=== PATIENT | female | born 1960 | race Caucasian/White ===

== ENCOUNTER → 2016-10-21 | Outpatient (CLI) | payer BC, OTHER ==
--- NOTE | 2016-10-25 11:42 | MM ---
Reason for exam: screening (asymptomatic). Last mammogram was performed 1 year and 2 months ago. History: Patient is postmenopausal and history of other cancer. Family history of breast cancer in maternal aunt at age 40 and breast cancer in maternal aunt at age 50. Physical Findings: A clinical breast exam by your physician is recommended on an annual basis and results should be correlated with mammographic findings. MG 3D Screening Mammo W/Cad Bilateral CC and MLO view(s) were taken. Prior study comparison: August 15, 2015, bilateral MG 3d screening mammo w/cad. January 23, 2014, bilateral MG screening mammo w CAD. There are scattered fibroglandular densities. There is chronic nodularity in the right breast. No significant changes when compared with prior studies. ASSESSMENT: Negative, BI-RAD 1 RECOMMENDATION: Routine screening mammogram of both breasts in 1 year.
== END | disposition home or self-care (01) ==
LOC: RADMAMWWP 13:19
PROVIDERS: ATTEND Family Medicine
DX: Z12.31 Encounter for screening mammogram for malignant neoplasm of breast (principal)
CPT/HCPCS: 77063; G0202

== ENCOUNTER 2016-11-19 13:57 | Emergency (ER) | payer BC, OTHER ==
[2016-11-19 14:52] VITALS: RESP 18
[2016-11-19] MEDS ORDERED: HYDROmorphone 1 MG/ML 1 ML SYRINGE IM STA (15:44)
--- NOTE | 2016-11-19 15:48 | ED ---
Fall HPI - General Chief Complaint: Fall Stated Complaint: Arm/Rib Pain/SOB / fall from standing Time Seen by Provider: 11/19/16 15:25 Source: patient, RN notes reviewed Mode of arrival: ambulatory - History of Present Illness Initial Comments: Patient is a 56-year-old female presents to the emergency room for evaluation of fall injury. Patient states that she tripped over her dog and fell on her right side. Patient states she hit her head. Patient states that she thinks she lost consciousness for a few seconds. Patient states that she is having a headache. Patient denies dizziness or nausea. Patient denies neck pain. Patient states that she does have a bruise on the right side of her right eye. Patient denies changes in vision. Patient states that she is also having right shoulder, upper arm, elbow and wrist pain. Patient states the pain is more severe in her elbow. Patient denies any numbness or tingling in her fingers. Patient also states that she's having right-sided rib pain. Patient states the pain is worse when she takes a deep breath. Patient denies any other injuries during incident. Patient denies taking blood thinners. - Related Data Home Medications Medication Instructions Recorded Confirmed Omeprazole [PriLOSEC] 20 mg PO HS 09/13/14 11/19/16 Verapamil HCl [Verapamil ER] 180 mg PO HS 09/13/14 11/19/16 Milk Thistle 150 mg PO HS 11/19/16 11/19/16 Multivitamins, Thera [Multivitamin 1 tab PO HS 11/19/16 11/19/16 (formulary)] Previous Rx's Medication Instructions Recorded HYDROcodone/APAP 5-325MG [[place]on 1 tab PO Q6HR PRN #12 tab 11/19/16 5-325] Allergies Allergy/AdvReac Type Severity Reaction Status Date / Time aspirin Allergy Anaphylaxis Verified 11/19/16 15:50 prednisone AdvReac Severe Increased Verified 11/19/16 15:50 Blood Pressure ciprofloxacin [From Cipro] AdvReac Tendonitis Verified 11/19/16 15:50 duloxetine HCl AdvReac Hallucinations/Suicidal Verified 11/19/16 15:50 [From Cymbalta] Ideations morphine AdvReac Migraine Verified 11/19/16 15:50 topiramate [From Topamax] AdvReac Hallucinati Verified 11/19/16 15:50 ons Review of Systems ROS Statement: Those systems with pertinent positive or pertinent negative responses have been documented in the HPI. ROS Other: All systems not noted in ROS Statement are negative. Past Medical History Past Medical History: Fibromyalgia, GERD/Reflux, Liver Disease Additional Past Medical History / Comment(s): Fibromyalgia, IBS, Chronic fatigue , elevated liver enzymes unknown etiology, chronic back pain (broken back) History of Any Multi-Drug Resistant Organisms: None Reported Past Surgical History: Cholecystectomy, Hysterectomy, Orthopedic Surgery Additional Past Surgical History / Comment(s): 2004 hysterectomy 2011 exp lap for scar tissue, 1999 right elbow tendon release, 2002 left elbow tendon release , 2011 gallbladder removed, occipital nerve steriod injections., ankle Past Anesthesia/Blood Transfusion Reactions: Postoperative Nausea & Vomiting ( PONV) Past Psychological History: No Psychological Hx Reported Additional Psychological History / Comment(s): Patient had suicide ideation when taking Cymbalta. Smoking Status: Never smoker Past Alcohol Use History: None Reported Past Drug Use History: Marijuana Additional Drug Use History / Comment(s): medical marijuana cards--uses occassionally for pain when needed - Past Family History Mother Family Medical History: No Reported History General Exam - General Exam Comments Initial Comments: Sitting in exam room, no acute. Limitations: no limitations General appearance: alert, in no apparent distress Head exam: Present: normocephalic, normal inspection. Absent: atraumatic (Mild amount of bruising and swelling on the outside of the right eye) Eye exam: Present: normal appearance ENT exam: Present: normal exam Neck exam: Present: normal inspection Respiratory exam: Present: normal lung sounds bilaterally, chest wall tenderness (Tenderness on palpating over anterior lateral right rib area. No ecchymosis or swelling noted.). Absent: respiratory distress Cardiovascular Exam: Present: regular rate, normal rhythm, normal heart sounds Right Shoulder Exam: Present: tenderness. Absent: full ROM Upper Arm exam: Present: tenderness (Palpating over her mid and distal humerus) Elbow exam: Present: tenderness. Absent: full ROM (Patient can only hold elbow 90 position) Forearm Wrist exam: Present: tenderness Hand Wrist exam: Present: tenderness. Absent: full ROM (Patient unable to extend wrist) Neuro motor exam: Absent: wrist extension intact Vascular: Present: normal capillary refill (Capillary refill is 2 seconds), radial pulse (2+), ulnar pulse (2+) Back exam: Present: normal inspection Neurological exam: Present: alert, oriented X3, CN II-XII intact, normal gait Expanded Patient oriented to: Present: person, place, time Speech: Present: fluid speech Cranial nerves: EOM's Intact: Normal, Facial Sensation: Normal Sensory exam: Upper Extremity Light Touch: Normal, Lower Extremity Light Touch: Normal Course Vital Signs 11/19/16 14:49 Temperature 98.3 F Pulse Rate 91 Respiratory 18 Rate Blood Pressure 141/68 O2 Sat by Pulse 99 Oximetry Medical Decision Making - Medical Decision Making Hansa is a 56-year-old female presents to the emergency room for evaluation of fall injury. Patient has multiple complaints. CT of brain and C-spine negative for any acute findings. Facial CT negative for acute findings. Right elbow x-ray significant for a minimally displaced radial head fracture. Positive sail sign. Patient also having issues extending her wrist. Patient most likely has radial nerve palsy from radial head injury. Advised patient to follow-up with head orthopedic team physician on Tuesday. Patient placed in an arm sling. Patient will be sent home with pain medications. Patient states she understands everything that was discussed with her. Return parameters discussed. Case discussed with Dr. Duggan. - Radiology Data Radiology results: report reviewed, image reviewed Disposition Clinical Impression: Fall, Contusion of rib on right side, Head trauma, Facial contusion, Right radial head fracture, Acute radial nerve palsy Disposition: HOME SELF-CARE Condition: Good Instructions: Head Injury (ED), Elbow Fracture in Adults (ED), Rib Contusion ( ED) Additional Instructions: Take pain medications as needed. Ice on and off for 10-15 minutes for the next 24-48 hours. Please follow-up with head orthopedic team physician in 24-48 hours for reevaluation. If new symptoms develop or symptoms worsen, please return to the ER. Prescriptions: HYDROcodone/APAP 5-325MG [Colon 5-325] 1 tab PO Q6HR PRN #12 tab PRN Reason: Pain Referrals: Calvin Felix DO [Primary Care Provider] - 1-2 days Zen Arreguin MD [STAFF PHYSICIAN] - 1-2 days Time of Disposition: 16:59
--- NOTE | 2016-11-19 16:35 | CT ---
EXAMINATION TYPE: CT brain danette wo con DATE OF EXAM: 11/19/2016 4:23 PM COMPARISON: NONE HISTORY: 56-year-old female with fall today and side injury. CT DLP: 2004.6 mGycm Automated exposure control for dose reduction was used. Technique: Examination of the head was done in axial plane without intravenous contrast. Coronal and sagittal reconstructions performed. CT of the cervical spine was obtained in axial plane without intravenous injection of contrast mater ial. Coronal and sagittal reformatted images were obtained from the axial views for evaluation of f ractures, spinal alignment and canal. FINDINGS: Head: There is no evidence of acute intracranial hemorrhage, acute ischemic changes, mass, mass-effect, or extra-axial fluid collection. There is no effacement of cerebral sulci or basal subarachnoid cister ns. There is no hydrocephalus. There is no midline shift. Kaye-white matter distinction is preserv ed. There is focal soft tissue contusion overlying the patient's right temporal. No underlying calvarial or skull base fracture. Mastoid air cells well pneumatized. The visualized face will be reported sepa rately. Cervical spine: No craniocervical junction abnormality, predental space widening, or prevertebral soft tissue swellin g. Moderate disc/endplate degenerative change, greatest at C3-C4 and C5-C6 with disc osteophyte complex. There is multilevel uncovertebral joint and facet degenerative change. Changes result in mild narrowing of the spinal canal at both C3-C4 and C5-C6. There is trace grade 1 retrolisthesis at C3-C4 but otherwise preserved alignment. No acute fracture of the cervical spine. Variable mild neural foraminal narrowing, more moderate on the right at C5-C6. Sagittal and coronal reformatted images confirm above findings. COMBINED IMPRESSION: 1. Soft tissue contusion overlying the right temporal region. No underlying skull fracture or acute i ntracranial abnormality seen. The face will be reported separately. 2. No acute fracture of the cervical spine. Moderate multilevel spondylotic change with degenerative grade 1 retrolisthesis at C3-C4.
--- NOTE | 2016-11-19 16:37 | CT ---
EXAMINATION TYPE: CT facial bones wo con DATE OF EXAM: 11/19/2016 4:24 PM COMPARISON: NONE HISTORY: 56-year-old female with fall today and side injury. TECHNIQUE: Contiguous high-resolution axial scanning of the facial bones without IV contrast. Coronal reconstructions performed. CT DLP: 2004.6 mGycm Automated exposure control for dose reduction was used. FINDINGS: Redemonstrated soft tissue contusion along the lateral right periorbital/temporal region. No underlyi ng orbital, nasal bone, or facial bone fracture. The globes appear intact. Paranasal sinuses well pne umatized. Undulating nasal septum is noted. Mandible is intact. IMPRESSION: SOFT TISSUE CONTUSION IN THE RIGHT LATERAL PERIORBITAL/TEMPORAL REGION WITHOUT UNDERLYING ACUTE FACIA L BONE OR ORBITAL FRACTURE.
--- NOTE | 2016-11-19 16:39 | XR ---
EXAMINATION TYPE: PA view chest and right rib series DATE OF EXAM: 11/19/2016 4:34 PM COMPARISON: 08/25/2011 HISTORY: 56-year-old female with pain after fall last night. FINDINGS: Heart is normal size. Aorta and pulmonary vasculature within normal limits. No consolidation, pneumot horax, or pleural effusion. Similar mild eventration of the right hemidiaphragm. Cholecystectomy clips. No displaced right rib fractures seen. IMPRESSION: No acute cardiopulmonary process. No displaced right rib fractures.
--- NOTE | 2016-11-19 16:42 | XR ---
EXAMINATION TYPE: 2 views right humerus. 2 views right forearm. DATE OF EXAM: 11/19/2016 4:34 PM COMPARISON: NONE HISTORY: 56-year-old female with fall last night and pain. Right elbow swelling. FINDINGS: Humerus: There is mild degenerative change at the AC joint. No acute fracture seen of the humerus. Forearm: There is underlying elbow joint effusion with a minimally displaced, mildly comminuted fracture of th e radial head with intra-articular extension into the radiocapitellar joint. There is very minimal 7 mm of articular surface step-off. The wrist articulation appears grossly intact. IMPRESSION: Humerus and forearm: Post traumatic elbow joint effusion/hemarthrosis with mildly comminuted, minimal ly displaced intra-articular radial head fracture.
[2016-11-19 17:57] VITALS: BP 133/60; PULSE 79; TEMP 98.7
== END 2016-11-19 17:50 | disposition home or self-care (01) ==
LOC: EC 13:57
DX: S52.121A Displaced fracture of head of right radius, initial encounter for closed fracture (principal); S05.8X1A Other injuries of right eye and orbit, initial encounter; S20.211A Contusion of right front wall of thorax, initial encounter; G56.31 Lesion of radial nerve, right upper limb; M25.511 Pain in right shoulder; K21.9 Gastro-esophageal reflux disease without esophagitis; Z79.899 Other long term (current) drug therapy; Z88.1 Allergy status to other antibiotic agents; Z88.5 Allergy status to narcotic agent; Z88.6 Allergy status to analgesic agent; Z88.8 Allergy status to other drugs, medicaments and biological substances; Z87.19 Personal history of other diseases of the digestive system; Z98.890 Other specified postprocedural states; W01.0XXA Fall on same level from slipping, tripping and stumbling without subsequent striking against object, initial encounter
CPT/HCPCS: 99284; 96372; 71101; 73060; 73090; 72125; 70486; 70450; L3650; J1170

== ENCOUNTER → 2017-11-11 | Outpatient (CLI) | payer BC, OTHER ==
--- NOTE | 2017-11-15 11:16 | MM ---
Reason for exam: screening (asymptomatic). Last mammogram was performed 1 year and 1 month ago. History: Patient is postmenopausal and history of other cancer. Family history of breast cancer in maternal aunt at age 40 and breast cancer in maternal aunt at age 50. Physical Findings: A clinical breast exam by your physician is recommended on an annual basis and results should be correlated with mammographic findings. MG 3D Screening Mammo W/Cad Bilateral CC and MLO view(s) were taken. Prior study comparison: October 21, 2016, bilateral MG 3d screening mammo w/cad. August 15, 2015, bilateral MG 3d screening mammo w/cad. There are scattered fibroglandular densities. There is chronic nodularity in the right breast. No significant changes when compared with prior studies. ASSESSMENT: Negative, BI-RAD 1 RECOMMENDATION: Routine screening mammogram of both breasts in 1 year. Manage on a clinical basis with regard to right breast pain and irritation.
== END | disposition home or self-care (01) ==
LOC: RADMAMWWP 11:34
PROVIDERS: ATTEND Family Medicine
DX: Z12.31 Encounter for screening mammogram for malignant neoplasm of breast (principal)
CPT/HCPCS: 77063; 77067

== ENCOUNTER → 2018-09-19 | Outpatient (CLI) | payer BC, OTHER ==
--- NOTE | 2018-09-19 12:26 | EST ---
EXERCISE STRESS AGE: 57 SEX: F HT: 65" WT: 219 PROTOCOL: Aneudy Stress Test STAGE: 2 DURATION OF EXERCISE: 5:00 HEART RATE REST: 88 BLOOD PRESSURE REST: 134/91 MAXIMUM HEART RATE ACHIEVED: 157 MAXIMUM BLOOD PRESSURE: 166/80 85% MPHR: 138 100% MPHR: 162 METS: 7.0 INDICATIONS: Chest pain/palpitations. CLINICAL INFORMATION: STRESS DATA: Pretesting physical examination showed a heart rate of 88, pressure is 134/91 mmHg. Baseline EKG showed sinus mechanism. The patient exercised on the treadmill according to Aneudy protocol for a total of 5 minutes and achieved 7.0 METS. Max heart rate was 157, which is about 97% of maximum predicted heart rate. Maximum blood pressure was 166/80 mmHg. Clinically, the patient did not have any symptoms of chest pain or discomfort but she developed shortness of breath. The EKG did not show any significant ST or T-wave abnormalities concerning for ischemia. CONCLUSION: 1. Average exercise capacity. 2. Normal EKG in response to exercise. MMODL / IJN: [id number] /
== END | disposition home or self-care (01) ==
LOC: RADNMMAIN 08:54
PROVIDERS: ATTEND Family Medicine
DX: I47.1 Supraventricular tachycardia (principal); I49.3 Ventricular premature depolarization
CPT/HCPCS: 93017; 93270; 93271

== ENCOUNTER 2018-10-07 19:39 | Emergency (ER) | payer BC, OTHER ==
[2018-10-07 19:49] VITALS: RESP 20; TEMP 98.5
[2018-10-07] MEDS ORDERED: methylPREDNISolone SOD SUCCI 125 MG/2 ML VIAL IV STA (19:55)
[2018-10-07] MEDS ORDERED: FAMOTIDINE 20 MG/2 ML VIAL IV STA (19:55)
[2018-10-07] MEDS ORDERED: SODIUM CHLORIDE 0.9% 1,000 ML IV ONE (19:55)
[2018-10-07] MEDS ORDERED: diphenhydrAMINE 50 MG/ML 1 ML VIAL IVP STA (19:55)
--- NOTE | 2018-10-07 21:17 | ED ---
Allergic Reaction HPI - General Chief complaint: Allergic Reaction Stated complaint: Allergic reaction Time Seen by Provider: 10/07/18 19:49 Source: patient Mode of arrival: ambulatory Limitations: no limitations - History of Present Illness Initial Comments: 57-year-old female patient presents to the emergency department today for evaluation of ALLERGIC reaction. Patient states about 20-30 minutes ago she developed hives, itching, and tingling to her lips. Patient does admit to eating melon that she has not had before. Patient states she has had ALLERGIC reactions in the past. She states she is having a scratchy throat but denies any throat swelling or tongue swelling. She denies any shortness of breath. Patient states that she does feel anxious. She denies any abdominal pain with this. Patient denies any recent rash, fever, chills, chest pain, abdominal pain, nausea, vomiting, diarrhea, constipation, back pain, numbness, tingling, di zziness, weakness, hematuria, dysuria, urinary urgency, urinary frequency, headache, visual changes, or any other complaints. - Related Data Home Medications Medication Instructions Recorded Confirmed Omeprazole [PriLOSEC] 20 mg PO HS 09/13/14 11/19/16 Verapamil HCl [Verapamil ER] 180 mg PO HS 09/13/14 11/19/16 Milk Thistle 150 mg PO HS 11/19/16 11/19/16 Multivitamins, Thera [Multivitamin 1 tab PO HS 11/19/16 11/19/16 (formulary)] Previous Rx's Medication Instructions Recorded HYDROcodone/APAP 5-325MG [[place] 1 tab PO Q6HR PRN #12 tab 11/19/16 5-325] Dexamethasone [Decadron] 6 mg PO DAILY #2 tablet 10/07/18 Famotidine [Pepcid] 20 mg PO DAILY #3 tablet 10/07/18 Allergies Allergy/AdvReac Type Severity Reaction Status Date / Time aspirin Allergy Anaphylaxis Verified 10/07/18 19:48 prednisone AdvReac Severe Increased Verified 10/07/18 19:48 Blood Pressure ciprofloxacin [From Cipro] AdvReac Tendonitis Verified 10/07/18 19:48 duloxetine HCl AdvReac Hallucinations/Suicidal Verified 10/07/18 19:48 [From Cymbalta] Ideations morphine AdvReac Migraine Verified 10/07/18 19:48 topiramate [From Topamax] AdvReac Hallucinati Verified 10/07/18 19:48 ons Review of Systems ROS Statement: Those systems with pertinent positive or pertinent negative responses have been documented in the HPI. ROS Other: All systems not noted in ROS Statement are negative. Past Medical History Past Medical History: Fibromyalgia, GERD/Reflux, Liver Disease Additional Past Medical History / Comment(s): Fibromyalgia, IBS, Chronic fatigue, elevated liver enzymes unknown etiology, chronic back pain (broken back) History of Any Multi-Drug Resistant Organisms: None Reported Past Surgical History: Cholecystectomy, Hysterectomy, Orthopedic Surgery Additional Past Surgical History / Comment(s): 2004 hysterectomy 2011 exp lap for scar tissue, 1999 right elbow tendon release, 2002 left elbow tendon release, 2011 gallbladder removed, occipital nerve steriod injections., ankle Past Anesthesia/Blood Transfusion Reactions: Postoperative Nausea & Vomiting (PONV) Past Psychological History: No Psychological Hx Reported Smoking Status: Never smoker Past Alcohol Use History: None Reported Past Drug Use History: Marijuana - Past Family History Mother Family Medical History: No Reported History General Exam Limitations: no limitations General appearance: alert, in no apparent distress, other (Physical well- developed, well-nourished adult female patient in no acute distress. Vital signs upon presentation are temperature 98.5F, pulse 119, respirations 20, blood pressure 164/85, pulse ox 100% on room air.) Eye exam: Present: normal appearance, PERRL, EOMI. Absent: scleral icterus, conjunctival injection, periorbital swelling ENT exam: Present: normal exam, normal oropharynx, mucous membranes moist Respiratory exam: Present: normal lung sounds bilaterally. Absent: respiratory distress, wheezes, rales, rhonchi, stridor Cardiovascular Exam: Present: normal rhythm, tachycardia, normal heart sounds. Absent: systolic murmur, diastolic murmur, rubs, gallop, clicks GI/Abdominal exam: Present: soft, normal bowel sounds. Absent: distended, tenderness, guarding, rebound, rigid Neurological exam: Present: alert, oriented X3, CN II-XII intact Psychiatric exam: Present: normal affect, normal mood Skin exam: Present: warm, dry, intact, normal color, rash (Erythema noted to the chest, scattered urticaria noted over the chest and arms.) Course Vital Signs 10/07/18 10/07/18 10/07/18 19:47 20:48 22:00 Temperature 98.5 F Pulse Rate 119 H 77 100 Respiratory 20 20 20 Rate Blood Pressure 164/85 127/66 137/81 O2 Sat by Pulse 100 99 99 Oximetry Medical Decision Making - Medical Decision Making 57-year-old female patient presents to the emergency department today for evaluation of ALLERGIC reaction. Patient had urticaria and lip tingling. Lungs are clear to auscultation with good air movement. She had no wheezing. Denies any throat swelling or tongue swelling. Patient was given IV Pepcid, site Medrol, and Benadryl. Upon reevaluation patient reports feeling anxious and has been anxious throughout visit. We did administer Ativan. Patient was re- evaluated once again and patient is feeling improved. She will be discharged home at this time with prescriptions for Pepcid and Decadron. She is instructed to complete these medications in full and to take Benadryl every 6 hours as needed. Return parameters were discussed in detail. She verbalizes understanding and agrees this plan. Disposition Clinical Impression: Allergic reaction Disposition: HOME SELF-CARE Condition: Good Instructions (If sedation given, give patient instructions): General Allergic Reaction (ED) Additional Instructions: Continue medications as directed. Take Benadryl 25-50 mg every 6 hours as needed for symptom relief. Follow-up with your primary care physician for recheck in 1-2 days. Return to the emergency department for any new, worsening, or concerning symptoms. Prescriptions: Dexamethasone [Decadron] 6 mg PO DAILY #2 tablet Famotidine [Pepcid] 20 mg PO DAILY #3 tablet Is patient prescribed a controlled substance at d/c from ED?: No Referrals: Neelima Martinez MD [Primary Care Provider] - 1-2 days Time of Disposition: 22:58
[2018-10-07] MEDS ORDERED: LORazepam 2 MG/ML INJ IV STA (21:49)
[2018-10-07 22:01] VITALS: BP 137/81; PULSE 100
== END 2018-10-07 23:12 | disposition home or self-care (01) ==
LOC: EC 19:39
DX: T78.1XXA Other adverse food reactions, not elsewhere classified, initial encounter (principal); R00.0 Tachycardia, unspecified; K21.9 Gastro-esophageal reflux disease without esophagitis; Z88.1 Allergy status to other antibiotic agents; Z88.5 Allergy status to narcotic agent; Z88.6 Allergy status to analgesic agent; Z88.8 Allergy status to other drugs, medicaments and biological substances; Z79.899 Other long term (current) drug therapy
CPT/HCPCS: 99283; 96374; 96375 ×3; 96361; J2060; J1200; J2930

== ENCOUNTER 2018-10-12 10:27 | Emergency (ER) | payer BC, OTHER ==
[2018-10-12 10:37] VITALS: TEMP 98.3
[2018-10-12] MEDS ORDERED: SODIUM CHLORIDE 0.9% 1,000 ML IV STA (10:42)
[2018-10-12] MEDS ORDERED: FAMOTIDINE 20 MG/2 ML VIAL IV STA (10:42)
[2018-10-12] MEDS ORDERED: diphenhydrAMINE 50 MG/ML 1 ML VIAL IVP STA (10:42)
[2018-10-12] MEDS ORDERED: LORazepam 2 MG/ML INJ IV STA (10:42)
[2018-10-12] MEDS ORDERED: methylPREDNISolone SOD SUCCI 125 MG/2 ML VIAL IV STA (10:42)
[2018-10-12] MEDS ORDERED: KETOROLAC 30 MG/ML 1 ML VIAL IVP STA (12:21)
--- NOTE | 2018-10-12 12:39 | ED ---
General Adult HPI - General Chief complaint: Allergic Reaction Stated complaint: Allergic reaction Time Seen by Provider: 10/12/18 10:30 Source: patient, EMS, RN notes reviewed Mode of arrival: EMS Limitations: no limitations - History of Present Illness Initial comments: 57-year-old female presents to the emergency department for a chief complaint of ALLERGIC reaction. Patient states this started about one hour prior to arrival. Patient states her throat is scratchy and she feels very shaky. Patient states she has had similar ALLERGIC reactions multiple times before. She states the last one was Tuesday and she was seen here in the emergency department. Patient states that she has seen 2 different allergists and had multiple rounds of ALLERGY testing. Patient was started on steroids and Benadryl but again developed an ALLERGIC reaction today with a rash on her arms and face. Patient denies any difficulty swallowing or breathing. Patient has no other complaints at this time including shortness of breath, chest pain, abdominal pain, nausea or vomiting, headache, or visual changes. - Related Data Home Medications Medication Instructions Recorded Confirmed Verapamil HCl [Verapamil ER] 180 mg PO HS 09/13/14 10/12/18 Multivitamins, Thera [Multivitamin 1 tab PO HS 11/19/16 10/12/18 (formulary)] Hyoscyamine Sulfate [Levsin-Sl] 0.125 mg SL DAILY PRN 10/12/18 10/12/18 L.acidoph,Paracasei, B.lactis 1 cap PO DAILY 10/12/18 10/12/18 [Probiotic] Ranitidine HCl [Zantac] 150 mg PO BID 10/12/18 10/12/18 diphenhydrAMINE HCL [Children's 25 mg PO Q4H PRN 10/12/18 10/12/18 Benadryl Allergy Chews] Previous Rx's Medication Instructions Recorded Dexamethasone [Decadron] 6 mg PO DAILY #2 tablet 10/07/18 Famotidine [Pepcid] 20 mg PO BID #20 tablet 10/12/18 predniSONE 50 mg PO DAILY #5 tablet 10/12/18 Allergies Allergy/AdvReac Type Severity Reaction Status Date / Time aspirin Allergy Anaphylaxis Verified 10/12/18 11:00 prednisone AdvReac Severe Increased Verified 10/12/18 11:00 Blood Pressure ciprofloxacin [From Cipro] AdvReac Tendonitis Verified 10/12/18 11:00 duloxetine HCl AdvReac Hallucinations/Suicidal Verified 10/12/18 11:00 [From Cymbalta] Ideations morphine AdvReac Migraine Verified 10/12/18 11:00 topiramate [From Topamax] AdvReac Hallucinati Verified 10/12/18 11:00 ons Review of Systems ROS Statement: Those systems with pertinent positive or pertinent negative responses have been documented in the HPI. ROS Other: All systems not noted in ROS Statement are negative. Past Medical History Past Medical History: Fibromyalgia, GERD/Reflux, Liver Disease Additional Past Medical History / Comment(s): Fibromyalgia, IBS, Chronic fatigue, elevated liver enzymes unknown etiology, chronic back pain (broken back) History of Any Multi-Drug Resistant Organisms: None Reported Past Surgical History: Cholecystectomy, Hysterectomy, Orthopedic Surgery Additional Past Surgical History / Comment(s): 2004 hysterectomy 2011 exp lap for scar tissue, 1999 right elbow tendon release, 2002 left elbow tendon release, 2011 gallbladder removed, occipital nerve steriod injections., ankle Past Anesthesia/Blood Transfusion Reactions: Postoperative Nausea & Vomiting (PONV) Past Psychological History: No Psychological Hx Reported Smoking Status: Never smoker Past Alcohol Use History: None Reported Past Drug Use History: Marijuana - Past Family History Mother Family Medical History: No Reported History General Exam Limitations: no limitations General appearance: anxious Head exam: Present: atraumatic, normocephalic, normal inspection Eye exam: Present: normal appearance, PERRL, EOMI. Absent: scleral icterus, conjunctival injection, periorbital swelling ENT exam: Present: normal exam, normal oropharynx (No angioedema noted, no swelling of the lips tongue or throat), mucous membranes moist, TM's normal bilaterally, normal external ear exam Neck exam: Present: normal inspection, full ROM. Absent: tenderness, meningismus, lymphadenopathy Respiratory exam: Present: normal lung sounds bilaterally. Absent: respiratory distress, wheezes, rales, rhonchi, stridor Cardiovascular Exam: Present: regular rate, normal rhythm, normal heart sounds. Absent: systolic murmur, diastolic murmur, rubs, gallop, clicks GI/Abdominal exam: Present: soft, normal bowel sounds. Absent: distended, tenderness, guarding, rebound, rigid Neurological exam: Present: alert, oriented X3, CN II-XII intact Skin exam: Present: rash (Mild erythema, consistent with hives noted to the neck or face) Course Vital Signs 10/12/18 10/12/18 10/12/18 10:31 11:08 12:20 Temperature 98.3 F Pulse Rate 116 H 120 H 86 Respiratory 20 20 16 Rate Blood Pressure 179/92 160/89 127/79 O2 Sat by Pulse 98 99 99 Oximetry Medical Decision Making - Medical Decision Making 49-year-old female presents for ALLERGIC reaction. Patient has experience the similar symptoms in the past. Patient was last seen here Tuesday and treated. She was given medications here in the emergency department and her symptoms improved significantly. Vitals are stable. No difficulty breathing or swallowing. Patient is much improved at this time. She did develop a headache and was given Toradol. At this time it is felt patient can follow up outpatient. Patient is comfortable and in agreement with this. Did discuss returning if the symptoms occur. I did add Pepcid to the Benadryl and steroid she is taking. She will follow up with an park guard. She'll return here if she has any worsening symptoms. Patient is already looking up phone numbers for an park guard and has been picked out that she would like to see. Disposition Clinical Impression: Allergic reaction Disposition: HOME SELF-CARE Condition: Good Instructions (If sedation given, give patient instructions): General Allergic Reaction (ED) Additional Instructions: Please continue to take steroid and Benadryl. Take Pepcid as well. Follow up with primary care and park guard in 1-2 days. Please return here to the emergency department if you have any worsening symptoms. Prescriptions: Famotidine [Pepcid] 20 mg PO BID #20 tablet predniSONE 50 mg PO DAILY #5 tablet Is patient prescribed a controlled substance at d/c from ED?: No Referrals: Neelima Martinez MD [Primary Care Provider] - 1-2 days Time of Disposition: 12:37
[2018-10-12 12:54] VITALS: BP 126/66; PULSE 77; RESP 16
== END 2018-10-12 13:00 | disposition home or self-care (01) ==
LOC: EC 10:27
DX: T78.40XA Allergy, unspecified, initial encounter (principal); R51 Headache; K21.9 Gastro-esophageal reflux disease without esophagitis; Z88.1 Allergy status to other antibiotic agents; Z88.5 Allergy status to narcotic agent; Z88.6 Allergy status to analgesic agent; Z88.8 Allergy status to other drugs, medicaments and biological substances; Z79.899 Other long term (current) drug therapy
CPT/HCPCS: 99284; 96374; 96375 ×4; J2060; J1200; J2930; J1885

== ENCOUNTER 2018-10-13 15:25 | Observation (INO) | payer BC, OTHER ==
[2018-10-13] MEDS ORDERED: EPINEPHrine 1 MG/ML 1 ML AMP IM STA (15:49)
[2018-10-13] MEDS ORDERED: SODIUM CHLORIDE 0.9% 500 ML 500 ML IV STA (15:49)
[2018-10-13] MEDS ORDERED: LORazepam 2 MG/ML INJ IV STA (15:49)
[2018-10-13] MEDS ORDERED: FAMOTIDINE 20 MG/2 ML VIAL IV STA (15:50)
--- NOTE | 2018-10-13 16:00 | ED ---
General Adult HPI - General Chief complaint: Allergic Reaction Stated complaint: allergic reaction-revisit Time Seen by Provider: 10/13/18 15:42 Source: patient Mode of arrival: wheelchair Limitations: no limitations - History of Present Illness Initial comments: Dictation was produced using [employer] dictation software. please excuse any grammatical, word or spelling errors. Chief Complaint: 57-year-old female presents with concerns of anaphylaxis. History of Present Illness: 49-year-old female with history of multiple A LLERGIES, fibromyalgia, liver disease, GERD presents with concerns of ALLERGIC reaction. Patient states that she began feeling the tingling, throat closure and abdominal pain. Patient was here in the emergency department yesterday and seen for the same thing. Patient has history of multiple ALLERGIES. Patient was given steroids and antihistamines yesterday and was discharge home with plans to follow up with medical care administrator. She is here today because she had a repeat event she was concerned she was having a severe ALLERGIC reaction. Patient denies any nausea vomiting. Patient reports that she is ALLERGIC to several things. She is not sure what is the allergen this time around. reports that she appears flushed. The ROS documented in this emergency department record has been reviewed and confirmed by me. Those systems with pertinent positive or negative responses have been documented in the HPI. All other systems are other negative and/or noncontributory. PHYSICAL EXAM: General Impression: Alert and oriented x3, anxious, no drooling, tachypnea, flushed skin HEENT: Normocephalic atraumatic, extra-ocular movements intact, pupils equal and reactive to light bilaterally, mucous membranes moist. Cardiovascular: Heart regular rate and rhythm, S1&S2 audible, no murmurs, rubs or gallops Chest: Lungs clear to auscultation bilaterally, no rhonchi, no wheeze, no rales Abdomen: Bowel sounds present, abdomen soft, diffuse abdominal tenderness, non- distended, no organomegaly Musculoskeletal: Pulses present and equal in all extremities, no peripheral edema Motor: no focal deficits noted Neurological: CN II-XII grossly intact, no focal motor or sensory deficits noted Skin: Diffuse flushing Psych: Normal affect and mood ED course: 57-year-old female multiple ALLERGIES presents with clinical presentation concerning for anaphylaxis given respiratory symptoms, abdominal s ymptoms and impending airway symptoms. As upon arrival shows heart rate of 133, worse vital signs within acceptable limits. Patient was seen yesterday for the same complaint. She does seem slightly anxious and given some Ativan.Given that this is patient's third visit in the last week labs were obtained. Patient is leukocytosis of 20.5 likely secondary to stress compounded with steroid adminis tration. Rest of CBC is unremarkable. Patient does have a monocytosis and neutrophilia. She panel was obtained showing no acute processes. No localizing symptoms for indication of imaging studies at this time. More history was obtained from patient. She is reports that she has several ALLERGIES. This point is not clear what is causing patient's symptoms. She stated his be tachycardic. Discussed patient case with son physician group. They agreed to have patient admitted for medical monitoring. At this point it is unclear what is causing patient's symptoms. She did report some improvement after allergen cocktail. - Related Data Home Medications Medication Instructions Recorded Confirmed Verapamil HCl [Verapamil ER] 180 mg PO HS 09/13/14 10/13/18 Hyoscyamine Sulfate [Levsin-Sl] 0.125 mg SL DAILY PRN 10/12/18 10/13/18 Ranitidine HCl [Zantac] 150 mg PO BID 10/12/18 10/13/18 diphenhydrAMINE HCL [Children's 25 mg PO Q4H PRN 10/12/18 10/13/18 Benadryl Allergy Chews] Previous Rx's Medication Instructions Recorded Famotidine [Pepcid] 20 mg PO BID #20 tablet 10/12/18 predniSONE 50 mg PO DAILY #5 tablet 10/12/18 Allergies Allergy/AdvReac Type Severity Reaction Status Date / Time aspirin Allergy Anaphylaxis Verified 10/13/18 16:19 prednisone AdvReac Severe Increased Verified 10/13/18 16:19 Blood Pressure adhesive tape AdvReac Unknown Verified 10/13/18 16:19 ciprofloxacin [From Cipro] AdvReac Tendonitis Verified 10/13/18 16:19 duloxetine HCl AdvReac Hallucinations/Suicidal Verified 10/13/18 16:19 [From Cymbalta] Ideations latex AdvReac Unknown Verified 10/13/18 16:19 morphine AdvReac Migraine Verified 10/13/18 16:19 topiramate [From Topamax] AdvReac Hallucinati Verified 10/13/18 16:19 ons Review of Systems ROS Statement: Those systems with pertinent positive or pertinent negative responses have been documented in the HPI. ROS Other: All systems not noted in ROS Statement are negative. Past Medical History Past Medical History: Fibromyalgia, GERD/Reflux, Liver Disease Additional Past Medical History / Comment(s): Fibromyalgia, IBS, Chronic fatigue, elevated liver enzymes unknown etiology, chronic back pain (broken back) History of Any Multi-Drug Resistant Organisms: None Reported Past Surgical History: Cholecystectomy, Hysterectomy, Orthopedic Surgery Additional Past Surgical History / Comment(s): 2004 hysterectomy 2011 exp lap for scar tissue, 1999 right elbow tendon release, 2002 left elbow tendon release, 2011 gallbladder removed, occipital nerve steriod injections., ankle Past Anesthesia/Blood Transfusion Reactions: Postoperative Nausea & Vomiting (PONV) Past Psychological History: No Psychological Hx Reported Smoking Status: Never smoker Past Alcohol Use History: None Reported Past Drug Use History: Marijuana - Past Family History Mother Family Medical History: No Reported History General Exam Limitations: no limitations Course Vital Signs 10/13/18 10/13/18 10/13/18 15:32 16:11 16:30 Temperature 98.7 F Pulse Rate 133 H 111 H 110 H Respiratory 20 22 20 Rate Blood Pressure 158/116 187/105 144/88 O2 Sat by Pulse 99 97 98 Oximetry Medical Decision Making - Lab Data Result diagrams: 10/13/18 16:00 10/13/18 16:00 Lab Results 10/13/18 10/13/18 Range/Units 16:00 16:00 WBC 21.5 H (3.8-10.6) k/uL RBC 5.07 (3.80-5.40) m/uL Hgb 15.6 (11.4-16.0) gm/dL Hct 47.4 H (34.0-46.0) % MCV 93.4 (80.0-100.0) fL MCH 30.7 (25.0-35.0) pg MCHC 32.9 (31.0-37.0) g/dL RDW 13.0 (11.5-15.5) % Plt Count 398 (150-450) k/uL Neutrophils % 82 % Lymphocytes % 11 % Monocytes % 5 % Eosinophils % 1 % Basophils % 0 % Neutrophils # 17.6 H (1.3-7.7) k/uL Lymphocytes # 2.3 (1.0-4.8) k/uL Monocytes # 1.1 H (0-1.0) k/uL Eosinophils # 0.2 (0-0.7) k/uL Basophils # 0.1 (0-0.2) k/uL Sodium 138 (137-145) mmol/L Potassium 4.4 (3.5-5.1) mmol/L Chloride 105 (98-107) mmol/L Carbon Dioxide 22 (22-30) mmol/L Anion Gap 11 mmol/L BUN 17 (7-17) mg/dL Creatinine 0.62 (0.52-1.04) mg/dL Est GFR (CKD-EPI)AfAm >90 (>60 ml/min/1.73 sqM) Est GFR (CKD-EPI)NonAf >90 (>60 ml/min/1.73 sqM) Glucose 112 H (74-99) mg/dL Uric Acid 3.9 (3.7-7.4) mg/dL Calcium 10.2 (8.4-10.2) mg/dL Total Bilirubin 0.7 (0.2-1.3) mg/dL AST 21 (14-36) U/L ALT 38 (9-52) U/L Alkaline Phosphatase 83 (38-126) U/L Total Protein 7.4 (6.3-8.2) g/dL Albumin 4.4 (3.5-5.0) g/dL Disposition Clinical Impression: Tachycardia Disposition: ADMITTED IP TO THIS [facility] Condition: Fair Referrals: Neelima Martinez MD [Primary Care Provider] - 1-2 days Decision Time: 17:15
[2018-10-13 16:21] LABS: Basophils # (A) 0.1 k/uL (0-0.2); Basophils % (A) 0 %; Eosinophils # (A) 0.2 k/uL (0-0.7); Eosinophils % (A) 1 %; HCT 47.4 % (34.0-46.0); HGB 15.6 gm/dL (11.4-16.0); Lymphocytes # (A) 2.3 k/uL (1.0-4.8); Lymphocytes % (A) 11 %; MCH 30.7 pg (25.0-35.0); MCHC 32.9 g/dL (31.0-37.0); MCV 93.4 fL (80.0-100.0); Mean Platelet Volume 7.2; Monocytes # (A) 1.1 k/uL (0-1.0); Monocytes % (A) 5 %; Neutrophils # (A) 17.6 k/uL (1.3-7.7); Neutrophils % (A) 82 %; Platelet Count 398 k/uL (150-450); RBC 5.07 m/uL (3.80-5.40); WBC 21.5 k/uL (3.8-10.6)
[2018-10-13 16:35] LABS: ALT 38 U/L (9-52); AST 21 U/L (14-36); Albumin 4.4 g/dL (3.5-5.0); Alkaline Phosphatase 83 U/L (38-126); Anion Gap 11 mmol/L; Blood Urea Nitrogen 17 mg/dL (7-17); Calcium 10.2 mg/dL (8.4-10.2); Carbon Dioxide 22 mmol/L (22-30); Chloride 105 mmol/L (98-107); Glucose 112 mg/dL (74-99); Potassium 4.4 mmol/L (3.5-5.1); Sodium 138 mmol/L (137-145); Total Bilirubin 0.7 mg/dL (0.2-1.3); Total Protein 7.4 g/dL (6.3-8.2); Uric Acid 3.9 mg/dL (3.7-7.4)
[2018-10-13] MEDS ORDERED: NALOXONE 0.4 MG/ML 1 ML VIAL IV PRN (17:12)
[2018-10-13] MEDS: SODIUM CHLORIDE 0.9% 1,000 ML IV SCH (18:58)
--- NOTE | 2018-10-13 19:13 | P.HPIM ---
History of Present Illness H&P Date: 10/13/18 Chief Complaint: ALLERGIC reaction 49-year-old female with past medical history of GERD and fibromyalgia, migraines presents the ED for possible ALLERGIC reaction. Patient reports her symptoms started on Tuesday night. Patient had previously been wearing a Holter monitor for the past 19 days for an abnormal EKG that was prescribed to her by her family doctor. She started noticing a rash around the leads that were attached to her chest. She also felt her lips swelling along with tongue swelling. Patient was also noted to have a high pulse and elevated BP. Patient states that she measured her blood pressure, 197/134 with a pulse greater than 100. This prompted her to come to the ED where she was started discharged on prednisone and Benadryl. Patient reports coming to the ED yesterday with similar symptoms of facial flushing, numbness of the lips and nose along with feelings of swelling. Her pulse and blood pressure was elevated at that time as well. She was sent home from the ED. Patient returned again today for similar symptoms. Patient reports severe ALLERGIES to beef, dairy, corn, wheat, chemical and environmental sensitivities. Patient reports a previous history of anaphylaxis. She denies any smoking or alcohol use. Patient reports having a headache since Tuesday, states that she has a history of complex migraines. She denies any lower extremity edema or vomiting but does endorse nausea. Patient states that she feels intermittently, hot and cold. She denies any chest pain, changes in urination or bowel habits. No changes in appetite or weight. Patient reports a previous incident of similar symptoms a few years ago, it was attributed to ALLERGIC reaction. In the ED, patient was noted to have a blood pressure as high as 187/105. Her pulse was as high as 133, which improved slightly with Ativan. CBC showed a leukocytosis of 21.5. CMP was unremarkable. TSH was within normal limits. [facility] possible [facility]GIC reaction, concerns for anaphylaxis. Review of Systems All systems: negative Past Medical History Past Medical History: Fibromyalgia, GERD/Reflux, Liver Disease Additional Past Medical History / Comment(s): Fibromyalgia, IBS, Chronic fatigue, elevated liver enzymes unknown etiology, chronic back pain (broken back) History of Any Multi-Drug Resistant Organisms: None Reported Past Surgical History: Cholecystectomy, Hysterectomy, Orthopedic Surgery Additional Past Surgical History / Comment(s): 2004 hysterectomy 2011 exp lap for scar tissue, 1999 right elbow tendon release, 2002 left elbow tendon release, 2011 gallbladder removed, occipital nerve steriod injections., ankle Past Anesthesia/Blood Transfusion Reactions: Postoperative Nausea & Vomiting (PONV) Past Psychological History: No Psychological Hx Reported Smoking Status: Never smoker Past Alcohol Use History: None Reported Past Drug Use History: Marijuana - Past Family History Mother Family Medical History: No Reported History Medications and Allergies Home Medications Medication Instructions Recorded Confirmed Type Verapamil HCl [Verapamil ER] 180 mg PO HS 09/13/14 10/13/18 History Famotidine [Pepcid] 20 mg PO BID #20 tablet 10/12/18 10/13/18 Rx Hyoscyamine Sulfate [Levsin-Sl] 0.125 mg SL DAILY PRN 10/12/18 10/13/18 History Ranitidine HCl [Zantac] 150 mg PO BID 10/12/18 10/13/18 History diphenhydrAMINE HCL [Children's 25 mg PO Q4H PRN 10/12/18 10/13/18 History Benadryl Allergy Chews] predniSONE 50 mg PO DAILY #5 tablet 10/12/18 10/13/18 Rx Allergies Allergy/AdvReac Type Severity Reaction Status Date / Time aspirin Allergy Anaphylaxis Verified 10/13/18 16:19 prednisone AdvReac Severe Increased Verified 10/13/18 16:19 Blood Pressure adhesive tape AdvReac Unknown Verified 10/13/18 16:19 ciprofloxacin [From Cipro] AdvReac Tendonitis Verified 10/13/18 16:19 duloxetine HCl AdvReac Hallucinations/Suicidal Verified 10/13/18 16:19 [From Cymbalta] Ideations latex AdvReac Unknown Verified 10/13/18 16:19 morphine AdvReac Migraine Verified 10/13/18 16:19 topiramate [From Topamax] AdvReac Hallucinati Verified 10/13/18 16:19 ons Physical Exam Vitals: Vital Signs Temp Pulse Resp BP Pulse Ox 10/13/18 18:00 97 18 139/77 96 10/13/18 16:30 110 H 20 144/88 98 10/13/18 16:11 111 H 22 187/105 97 10/13/18 15:32 98.7 F 133 H 20 158/116 99 Intake and Output 10/13/18 10/13/18 10/13/18 06:59 14:59 22:59 Other: Weight 97.069 kg General: [non toxic], [no distress], [appears at stated age] Derm: [warm], [facial flushing] Head: [atraumatic], [normocephalic], [symmetric] Eyes: [EOMI], [no lid lag], [anicteric sclera] Mouth: [no lip lesion], [mucus membranes moist] Cardiovascular: [S1S2 reg], [tachycardia], [positive DP pulse bilateral] Lungs: [CTA bilateral], [no rhonchi, no rales] , [no accessory muscle use] Abdominal: [soft], [ nontender to palpation], [no guarding], [no appreciable organomegaly] Ext: [no gross muscle atrophy], [no edema], [no contractures] Neuro: [ CN II-XI grossly intact], [no focal neuro deficits] Psych: [Alert], [oriented], [appropriate affect] Results CBC & Chem 7: 10/13/18 16:00 10/13/18 16:00 Labs: Abnormal Lab Results - Last 24 Hours (Table) 10/13/18 10/13/18 Range/Units 16:00 16:00 WBC 21.5 H (3.8-10.6) k/uL Hct 47.4 H (34.0-46.0) % Neutrophils # 17.6 H (1.3-7.7) k/uL Monocytes # 1.1 H (0-1.0) k/uL Glucose 112 H (74-99) mg/dL Thrombosis Risk Factor Assmnt - Choose All That Apply Any of the Below Risk Factors Present?: Yes Each Factor Represents 1 point: Age 41-60 years, Obesity (BMI >25) Other Risk Factors: No Thrombosis Risk Factor Assessment Total Risk Factor Score: 2 Thrombosis Risk Factor Assessment Level: Low Risk Assessment and Plan Assessment: Assessment and Plan 1. Allergic reaction 2. Leukocytosis 3. Migraines 1. Patient reports history of severe ALLERGIES. Constellation of symptoms pointing towards possible anaphylaxis. Given EpiPen in the ED. Continue Solu- Medrol 60 mg IV 3 times a day. Concerns for pheochromocytoma or Mast cell activation syndrome? Telemetry monitoring. 2. WBC count 21.5 with neutrophils. Likely secondary to prednisone use. Daily CBC. 3. Continue verapamil for prophylaxis of migraines. Reports that Dilaudid has worked in the past to control migraines, will continue. Patient admitted for observation for possible ALLERGIC reaction, concerns for anaphylaxis. Patient names her Keshav decision maker indicates that she can't make decisions for herself. Patient will like to remain full code.
[2018-10-13] MEDS: HYDROmorphone 0.5 MG/0.5 ML SYRINGE IVP PRN ×2 (19:27→22:35)
[2018-10-13] MEDS: FAMOTIDINE 20 MG TAB PO SCH (21:42)
[2018-10-13] MEDS: VERAPAMIL SR 180 MG TABLET.ER PO SCH (21:42)
[2018-10-13] MEDS: methylPREDNISolone SOD SUCCI 125 MG/2 ML VIAL IV SCH (22:56)
[2018-10-14 06:57] LABS: HCT 41.1 % (34.0-46.0); HGB 13.4 gm/dL (11.4-16.0); MCH 31.2 pg (25.0-35.0); MCHC 32.6 g/dL (31.0-37.0); MCV 95.6 fL (80.0-100.0); Mean Platelet Volume 6.6; Platelet Count 306 k/uL (150-450); WBC 11.4 k/uL (3.8-10.6)
[2018-10-14] MEDS: methylPREDNISolone SOD SUCCI 125 MG/2 ML VIAL IV SCH ×3 (06:58→23:26)
[2018-10-14] MEDS: HYDROmorphone 0.5 MG/0.5 ML SYRINGE IVP PRN ×2 (06:58→20:27)
[2018-10-14] MEDS: SODIUM CHLORIDE 0.9% 1,000 ML IV SCH ×3 (07:09→23:26)
[2018-10-14 07:13] LABS: Glucose,Whole Blood 142 mg/dL (75-99)
[2018-10-14] MEDS ORDERED: LORazepam 2 MG/ML INJ IV STA (07:39)
[2018-10-14] MEDS: INSULIN ASPART (NovoLOG) 100 UNIT/ML VIAL SQ SCH ×4 (08:00→21:34)
[2018-10-14] MEDS: FAMOTIDINE 20 MG TAB PO SCH ×2 (08:03→20:23)
--- NOTE | 2018-10-14 10:17 | P.PN ---
Subjective Progress Note Date: 10/14/18 Principal diagnosis: tachycardia, hypotension 57-year-old female with PMH of fibromyalgia, IBS, chronic fatigue syndrome, frequent migraines presents to the ED for what appears to be an ALLERGIC reaction. Reported symptoms include facial flushing, tingling of the lips and tongue along with swelling (which has been nonobserved while here), and palpitations. Patient reports severe ALLERGIES to beef, dairy, corn, wheat, chemical environmental sensitivities with previous history of anaphylaxis. Overnight, patient has had blood pressure fluctuations with a SBP from 70s to 15 0s. Patient seen and examined. No acute events overnight. Patient reports an episode this morning. States that she was standing up to be weighed by the nurse, she sat down she experienced a sudden onset of facial flushing and burning. This was followed by palpitations and feelings of anxiousness. Document of pulse rate in the 130s, BP 71/51. She was given Ativan which improved her pulse to 98 and BP of 153/78. Objective - Vital Signs Vital signs: Vital Signs Temp 97.7 F 10/14/18 03:39 Pulse 98 10/14/18 08:00 Resp 22 10/14/18 08:00 BP 153/78 10/14/18 08:00 Pulse Ox 97 10/14/18 08:00 Intake & Output 10/13/18 10/14/18 10/14/18 18:59 06:59 18:59 Intake Total 790 0 Balance 790 0 Weight 97.069 kg 99.5 kg Intake: Intake, IV Titration 550 Amount Sodium Chloride 0.9% 1, 550 000 ml @ 100 mls/hr IV . Q10H [facility] Rx#:[id number] Oral 240 0 Other: Voiding Method Toilet # Voids 2 1 - Exam General: [non toxic], [no distress], [appears at stated age] Derm: [warm], [facial flushing] Head: [atraumatic], [normocephalic], [symmetric] Eyes: [EOMI], [no lid lag], [anicteric sclera] Mouth: [no lip lesion], [mucus membranes moist] Cardiovascular: [S1S2 reg], [no murmur], [positive DP pulse bilateral] Lungs: [CTA bilateral], [no rhonchi, no rales] , [no accessory muscle use] Abdominal: [soft], [ nontender to palpation], [no guarding], [no appreciable organomegaly] Ext: [no gross muscle atrophy], [no edema], [no contractures] Neuro: [ CN II-XI grossly intact], [no focal neuro deficits] Psych: [Alert], [oriented], [appropriate affect] - Labs CBC & Chem 7: 10/14/18 06:00 10/13/18 16:00 Labs: Abnormal Lab Results - Last 24 Hours (Table) 10/13/18 10/13/18 10/14/18 Range/Units 16:00 16:00 06:00 WBC 21.5 H 11.4 H (3.8-10.6) k/uL Hct 47.4 H (34.0-46.0) % Neutrophils # 17.6 H (1.3-7.7) k/uL Monocytes # 1.1 H (0-1.0) k/uL Glucose 112 H (74-99) mg/dL POC Glucose (mg/dL) (75-99) mg/dL 10/14/18 Range/Units 07:11 WBC (3.8-10.6) k/uL Hct (34.0-46.0) % Neutrophils # (1.3-7.7) k/uL Monocytes # (0-1.0) k/uL Glucose (74-99) mg/dL POC Glucose (mg/dL) 142 H (75-99) mg/dL Assessment and Plan Assessment: Assessment and Plan 1. Allergic reaction 2. Hypotension and tachycardia 3. Leukocytosis 4. Migraines 1. Patient reports history of severe ALLERGIES. Constellation of symptoms pointing towards possible anaphylaxis. Given epinephrine in the ED. Continue Solu-Medrol 60 mg IV 3 times a day. Follow hematology consultation for concerns for mast cell activation syndrome. Ativan 1 mg by mouth three times a day as needed for anxiety. 2. Unknown etiology, orthostatic versus vasovagal. Documented hypotension with tachycardia this morning, symptomatic. Follow troponin/EKG to rule out ACS. Follow-up echocardiogram to evaluate for valvular lesions. Obtain orthostats. Cardiology consulted for tachycardia, possible tilt table testing. 3. WBC count 21.5-11.4 with neutrophils. Likely secondary to prednisone use. Daily CBC. 4. Continue verapamil for prophylaxis of migraines. Reports that Dilaudid has worked in the past to control migraines, will continue. Patient admitted for observation for possible ALLERGIC reaction, concerns for anaphylaxis. Found to be hypotensive and tachycardic this morning, pending workup. Cardiology consulted. Possible DC in 1-2 days. Patient names her Keshav decision maker indicates that she can't make decisions for herself. Patient will like to remain full code.
[2018-10-14 10:19] LABS: Creatine Kinase 21 U/L (30-135)
[2018-10-14 10:29] LABS: Creatine Kinase MB 0.4 ng/mL (0.0-2.4)
[2018-10-14 10:55] LABS: Glucose,Whole Blood 138 mg/dL (75-99)
--- NOTE | 2018-10-14 11:29 | P.CRDCN ---
History of Present Illness History of present illness: This is a pleasant 57-year-old female past medical history significant for fibromyalgia, gastroesophageal reflux disease, chronic tachycardia, depression and chronic back pain. She denies history of hypertension, dyslipidemia, ABDs melitis for coronary artery disease. She is currently prescribed verapamil by her primary care physician and states that this was prescribed secondary to chronic migraine headaches as well as palpitations. We have asked to see her in consultation secondary to tachycardia. This all began approximately one month ago when the patient saw her primary care physician with complaints of palpitations. At that time she ordered a stress test as well as a 30 day event monitor. While undergoing event monitoring the patient states she was starting to have an ALLERGIC reaction to adhesive from the EKG electrodes. She was having significant rash, blistering, itching and pain at the sites of the electrodes. She was only able to complete 19 days of the monitoring due to the ALLERGIC reaction. Since that time she has had frequent episodes of what she describes as an anxiety reaction. For no specific reason at all she will start to feel her heart racing very fast with a tight sensation in the midsternal region with radiation up into the neck and face as well as a rash develops. She states she becomes extremely flushed in the face. She describes associated shortness of breath, nausea and dizziness as well. She then starts shaking and becomes very jittery. She had an episode similar to this this morning around 7:00 with no specific precipitating factors. At that time her blood pressure was noted to be low 71/51 telemetry tracings revealed sinus tachycardia heart rate of 129. She was given Ativan and her symptoms resolved. She has had multiple episodes like this over the previous couple of weeks. She has presented to the emergency department on multiple occasions has been diagnosed with an ALLERGIC reaction and given Benadryl and steroids. She is seen and examined sitting up in bed with her at the bedside. She is in no acute distress. Heart rate is regular and approximately 70 bpm. She currently denies symptoms of chest pain, shortness of breath, dizziness, nausea, vomiting, palpitations or diaphoresis. EKG reveals sinus tachycardia heart rate [address]-T wave abnormalities noted. Laboratory data reviewed, WBC 21.5 on admission down to 11.4 this morning, hemoglobin 13.4, platelets 306, sodium 138, potassium 4.4, creatinine 0.62, TSH 0.497. Recent stress test performed 09/19/2018 revealed no EKG evidence of ischemia response to exercise. The patient exercised for 5 minutes according to Ane[employer] protocol and achieved 7 mets. Current cardiac medications include verapamil 180 mg daily. At the time of my exam: CONSTITUTIONAL: Denies fever. Denies chills. EYES: Denies blurred vision. Denies vision changes. Denies eye pain. EARS, NOSE, MOUTH & THROAT: Denies headache. Denies sore throat. Denies ear pain. CARDIOVASCULAR: Denies chest pain. Denies shortness of breath. Denies orthopnea. Denies PND. Denies palpitations. RESPIRATORY: Denies cough. GASTROINTESTINAL: Denies abdominal pain. Denies diarrhea. Denies constipation. Denies nausea. Denies vomiting. MUSCULOSKELETAL: Denies myalgias. INTEGUMENTARY: Denies pruitis. Denies rash. NEUROLOGIC: Denies numbness. Denies tingling. Denies weakness. PSYCHIATRIC: Denies anxiety. Denies depression. ENDOCRINE: Denies fatigue. Denies weight change. Denies polydipsia. Denies polyurina. GENITOURINARY: Denies burning, hematuria or urgency with micturation. HEMATOLOGIC: Denies history of anemia. Denies bleeding. Blood pressure 153/78 heart rate 98 afebrile maintaining oxygen saturation on room air. GENERAL: This is a 57-year-old female in no apparent distress at the time of my examination. HEENT: Head is atraumatic, normocephalic. Pupils are equal, round. Sclerae anicteric. Conjunctivae are clear. Mucous membranes of the mouth are moist. Neck is supple. There is no jugular venous distention. No carotid bruit is heard. LUNGS: Clear to auscultation no wheezes, rales or rhonchi. No chest wall tenderness is noted on palpation or with deep breathing. HEART: Regular rate and rhythm without murmurs, rubs or gallops. S1 and S2 heard. ABDOMEN: Soft, nontender. Bowel sounds are heard. No organomegaly noted. EXTREMITIES: No evidence of peripheral edema and no calf tenderness noted. VASCULAR: Radial and dorsalis pedis pulses palpated, no evidence of clubbing. NEUROLOGIC: Patient is awake, alert and oriented x3. ASSESSMENT Sinus tachycardia with facial flushing, hypotension and chest pain. Assess for Carcinoid syndrome and Pheochromocytoma. Leukocytosis History of migraine headaches PLAN Echocardiogram has been ordered and will be reviewed. Check cardiac enzymes rule out an acute coronary event. Check d-dimer, methanephrines and 24-hr urine catecholemines to assess for possible pheochromocytoma or carcinoid syndrome. Further recommendations to follow. Thank you kindly for this consultation. Nurse Practitioner note has been reviewed, I agree with a documented findings and plan of care. Patient was seen and examined. Past Medical History Past Medical History: Fibromyalgia, GERD/Reflux, Liver Disease Additional Past Medical History / Comment(s): Fibromyalgia, IBS, Chronic fatigue, elevated liver enzymes unknown etiology, chronic back pain (broken back) History of Any Multi-Drug Resistant Organisms: None Reported Past Surgical History: Cholecystectomy, Hysterectomy, Orthopedic Surgery Additional Past Surgical History / Comment(s): 2004 hysterectomy 2011 exp lap for scar tissue, 1999 right elbow tendon release, 2002 left elbow tendon release, 2011 gallbladder removed, occipital nerve steriod injections., ankle Past Anesthesia/Blood Transfusion Reactions: Postoperative Nausea & Vomiting (PONV) Past Psychological History: No Psychological Hx Reported Smoking Status: Never smoker Past Alcohol Use History: None Reported Past Drug Use History: Marijuana - Past Family History Mother Family Medical History: No Reported History Medications and Allergies Home Medications Medication Instructions Recorded Confirmed Type Verapamil HCl [Verapamil ER] 180 mg PO HS 09/13/14 10/13/18 History Famotidine [Pepcid] 20 mg PO BID #20 tablet 10/12/18 10/13/18 Rx Hyoscyamine Sulfate [Levsin-Sl] 0.125 mg SL DAILY PRN 10/12/18 10/13/18 History Ranitidine HCl [Zantac] 150 mg PO BID 10/12/18 10/13/18 History diphenhydrAMINE HCL [Children's 25 mg PO Q4H PRN 10/12/18 10/13/18 History Benadryl Allergy Chews] predniSONE 50 mg PO DAILY #5 tablet 10/12/18 10/13/18 Rx Allergies Allergy/AdvReac Type Severity Reaction Status Date / Time aspirin Allergy Anaphylaxis Verified 10/13/18 16:19 Milk Containing Products Allergy Nausea & Verified 10/14/18 07:13 [Dairy] Vomiting prednisone AdvReac Severe Increased Verified 10/13/18 16:19 Blood Pressure adhesive tape AdvReac Unknown Verified 10/13/18 16:19 ciprofloxacin [From Cipro] AdvReac Tendonitis Verified 10/13/18 16:19 duloxetine HCl AdvReac Hallucinations/Suicidal Verified 10/13/18 16:19 [From Cymbalta] Ideations latex AdvReac Unknown Verified 10/13/18 16:19 morphine AdvReac Migraine Verified 10/13/18 16:19 topiramate [From Topamax] AdvReac Hallucinati Verified 10/13/18 16:19 ons Physical Exam Vitals: Vital Signs Temp Pulse Pulse Resp BP BP Pulse Ox 10/14/18 08:00 98 22 153/78 97 10/14/18 07:09 124 H 21 71/51 99 10/14/18 07:03 130 H 21 10/14/18 03:39 97.7 F 74 18 118/76 96 10/14/18 00:00 98.2 F 74 17 117/72 95 10/13/18 20:15 98.2 F 88 17 114/75 98 10/13/18 20:00 88 18 10/13/18 19:00 97.8 F 99 18 127/81 98 10/13/18 18:00 97 18 139/77 96 10/13/18 17:30 98.2 F 88 18 114/75 98 10/13/18 16:30 110 H 20 144/88 98 10/13/18 16:11 111 H 22 187/105 97 10/13/18 15:32 98.7 F 133 H 20 158/116 99 Intake and Output 10/13/18 10/14/18 10/14/18 22:59 06:59 14:59 Intake Total 790 0 Balance 790 0 Intake: Intake, IV Titration 550 Amount Sodium Chloride 0.9% 1, 550 000 ml @ 100 mls/hr IV . Q10H [facility] Rx#:[id number] Oral 240 0 Other: Voiding Method Toilet Toilet # Voids 2 1 Weight 97.069 kg 99.5 kg Results 10/14/18 06:00 10/13/18 16:00 Cardiac Enzymes 10/13/18 Range/Units 16:00 AST 21 (14-36) U/L CBC 10/13/18 10/14/18 Range/Units 16:00 06:00 WBC 21.5 H 11.4 H (3.8-10.6) k/uL RBC 5.07 4.30 (3.80-5.40) m/uL Hgb 15.6 13.4 (11.4-16.0) gm/dL Hct 47.4 H 41.1 (34.0-46.0) % Plt Count 398 306 (150-450) k/uL Comprehensive Metabolic Panel 10/13/18 Range/Units 16:00 Sodium 138 (137-145) mmol/L Potassium 4.4 (3.5-5.1) mmol/L Chloride 105 (98-107) mmol/L Carbon Dioxide 22 (22-30) mmol/L BUN 17 (7-17) mg/dL Creatinine 0.62 (0.52-1.04) mg/dL Glucose 112 H (74-99) mg/dL Calcium 10.2 (8.4-10.2) mg/dL AST 21 (14-36) U/L ALT 38 (9-52) U/L Alkaline Phosphatase 83 (38-126) U/L Total Protein 7.4 (6.3-8.2) g/dL Albumin 4.4 (3.5-5.0) g/dL Current Medications Generic Name Dose Route Start Last Admin Trade Name Freq PRN Reason Stop Dose Admin Famotidine 20 mg 10/13/18 21:00 10/14/18 08:03 Pepcid PO 20 mg BID TISHA Administration Hydromorphone HCl 0.5 mg 10/13/18 19:07 10/14/18 06:58 Dilaudid IVP 0.5 mg Q3HR PRN Administration Pain Hyoscyamine 0.125 mg 10/13/18 18:57 Levsin PO DAILY PRN ABDOMINAL PAIN Sodium Chloride 1,000 mls @ 100 mls/hr 10/13/18 17:15 10/14/18 07:09 Saline 0.9% IV 100 mls/hr .Q10H TISHA Administration Insulin Aspart 0 unit 10/14/18 07:45 10/14/18 08:00 Novolog SQ Not Given ACHS [facility] Protocol Lorazepam 1 mg 10/14/18 09:16 Ativan PO Q8HR PRN Anxiety Methylprednisolone Sodium Succinate 60 mg 10/14/18 00:00 10/14/18 06:58 Solu-Medrol IV 60 mg Q8HR TISHA Administration Naloxone HCl 0.2 mg 10/13/18 17:12 Narcan IV Q2M PRN Opioid Reversal Verapamil HCl 180 mg 10/13/18 21:00 10/13/18 21:42 Isoptin Sr PO 180 mg HS TISHA Administration Intake and Output 10/13/18 10/14/18 10/14/18 22:59 06:59 14:59 Intake Total 790 0 Balance 790 0 Intake: Intake, IV Titration 550 Amount Sodium Chloride 0.9% 1, 550 000 ml @ 100 mls/hr IV . Q10H [facility] Rx#:[id number] Oral 240 0 Other: Voiding Method Toilet Toilet # Voids 2 1 Weight 97.069 kg 99.5 kg 10/14/18 06:00 10/13/18 16:00
[2018-10-14 12:05] LABS: Troponin I <0.012 ng/mL (0.000-0.034)
--- NOTE | 2018-10-14 13:40 | XR ---
EXAMINATION TYPE: XR chest 2V DATE OF EXAM: 10/14/2018 HISTORY: cp, sob. REFERENCE: Previous study dated 11/19/2016. FINDINGS: The lungs are clear. Pleural spaces are clear. The heart is not enlarged. IMPRESSION: NO ACTIVE INTRATHORACIC DISEASE.
[2018-10-14] MEDS: LORazepam 1 MG TAB PO PRN (13:45)
[2018-10-14] MEDS: HYOSCYAMINE SULFATE 0.125 MG TAB PO PRN (14:19)
[2018-10-14] MEDS: LORazepam 2 MG/ML INJ IV PRN (14:28)
[2018-10-14 16:41] LABS: Glucose,Whole Blood 109 mg/dL (75-99)
--- NOTE | 2018-10-14 18:35 | ECHOF ---
Referral Reason:Tachycardia MEASUREMENTS -------- HEIGHT: 165.1 cm WEIGHT: 99.3 kg BP: 153/78 RVIDd: 3.4 cm (< 3.3) IVSd: 1.2 cm (0.6 - 1.1) LVIDd: 3.7 cm (3.9 - 5.3) LVPWd: 1.1 cm (0.6 - 1.1) IVSs: 1.6 cm LVIDs: 2.4 cm LVPWs: 1.6 cm LAESV Index (A-L): 21.80 ml/m Ao Diam: 2.7 cm (2.0 - 3.7) AV Cusp: 1.9 cm (1.5 - 2.6) LA Diam: 3.3 cm (2.7 - 3.8) EPSS: 0.6 cm MV E Jacinto: 0.78 m/s MV DecT: 262 ms MV A Jacinto: 1.16 m/s MV E/A Ratio: 0.67 RAP: 5.00 mmHg RVSP: 23.52 mmHg MV EF SLOPE: 31.33 mm/s (70 - 150) MV EXCURSION: 1.16 cm (> 18.000) FINDINGS -------- Sinus rhythm. This was a technically adequate study. The left ventricular size is normal. There is mild concentric left ventricular hypertrophy. Overa ll left ventricular systolic function is normal with, an EF between 55 - 60 %. The right ventricle is mildly enlarged. Normal LA size by volume 22+/-6 ml/m2. The right atrium is normal in size. The aortic valve is trileaflet, and appears structurally normal. No aortic stenosis or regurgitation. The mitral valve leaflets are mildly thickened. There is trace to mild mitral regurgitation. Trace tricuspid regurgitation present. Right ventricular systolic pressure is normal at < 35 mmHg. There is no evidence of pulmonary hypertension. Trace/mild (physiologic) pulmonic regurgitation. The aortic root size is normal. Normal inferior vena cava with normal inspiratory collapse consistent with estimated right atrial pre ssure of 5 mmHg. There is no pericardial effusion. CONCLUSIONS -------- 1. Sinus rhythm. 2. This was a technically adequate study. 3. The left ventricular size is normal. 4. There is mild concentric left ventricular hypertrophy. 5. Overall left ventricular systolic function is normal with, an EF between 55 - 60 %. 6. The right ventricle is mildly enlarged. 7. Normal LA size by volume 22+/-6 ml/m2. 8. The aortic valve is trileaflet, and appears structurally normal. No aortic stenosis or regurgitati on. 9. The mitral valve leaflets are mildly thickened. 10. There is trace to mild mitral regurgitation. 11. Trace tricuspid regurgitation present. 12. Right ventricular systolic pressure is normal at < 35 mmHg. 13. There is no evidence of pulmonary hypertension. 14. Trace/mild (physiologic) pulmonic regurgitation. 15. The aortic root size is normal. 16. There is no pericardial effusion. MOLECULAR BIOLOGY DIRECTOR: Irvin Campos RDCS
[2018-10-14] MEDS: VERAPAMIL SR 180 MG TABLET.ER PO SCH (20:23)
[2018-10-14 20:37] LABS: Glucose,Whole Blood 146 mg/dL (75-99)
[2018-10-15 06:10] LABS: Glucose,Whole Blood 119 mg/dL (75-99)
[2018-10-15] MEDS: INSULIN ASPART (NovoLOG) 100 UNIT/ML VIAL SQ SCH ×4 (06:11→20:40)
[2018-10-15] MEDS: FAMOTIDINE 20 MG TAB PO SCH ×2 (08:30→21:18)
[2018-10-15] MEDS: SODIUM CHLORIDE 0.9% 1,000 ML IV SCH ×2 (08:30→21:19)
[2018-10-15] MEDS: methylPREDNISolone SOD SUCCI 125 MG/2 ML VIAL IV SCH ×3 (08:30→22:57)
--- NOTE | 2018-10-15 09:44 | P.PN ---
Subjective This is a pleasant 57-year-old female past medical history significant for fibromyalgia, gastroesophageal reflux disease, chronic tachycardia, depression and chronic back pain. She denies history of hypertension, dyslipidemia, ABDs melitis for coronary artery disease. Echocardiogram obtained reveals preserved left ventricular systolic function with ejection fraction 55- 60%. D-dimer is unremarkable and cardiac enzymes negative. Blood pressure 139/91 heart rate 88 afebrile maintaining oxygen saturation on room air. She is seen and examined resting comfortably lying flat in bed in no acute distress HEENT no to complain of frequent episodes of flushing and states she is having reactions everything including oatmeal she ate for breakfast this morning. She denies any symptoms of chest discomfort. However when she has she is calling ALLERGIC reaction she becomes short of breath and tachycardic. Telemetry tracings have been unremarkable. GENERAL: This is a 57-year-old female in no apparent distress at the time of my examination. HEENT: Head is atraumatic, normocephalic. Pupils are equal, round. Sclerae anicteric. Conjunctivae are clear. Mucous membranes of the mouth are moist. Neck is supple. There is no jugular venous distention. No carotid bruit is heard. LUNGS: Clear to auscultation no wheezes, rales or rhonchi. No chest wall tenderness is noted on palpation or with deep breathing. HEART: Regular rate and rhythm without murmurs, rubs or gallops. S1 and S2 heard. EXTREMITIES: No evidence of peripheral edema and no calf tenderness noted. ASSESSMENT Sinus tachycardia with facial flushing, hypotension and chest pain. Assess for Carcinoid syndrome and Pheochromocytoma. Leukocytosis History of migraine headaches PLAN Overall stable from a cardiac perspective. Follow up with Dr. Martinez for results of pending laboratory values that are send out tests. We will continue to follow as needed. Nurse Practitioner note has been reviewed, I agree with a documented findings and plan of care. Patient was seen and examined. Objective - Vital Signs Vital signs: Vital Signs Temp 97.6 F 10/15/18 08:00 Pulse 88 10/15/18 08:00 Resp 18 10/15/18 08:00 BP 139/91 10/15/18 08:00 Pulse Ox 99 10/15/18 08:00 Intake & Output 10/14/18 10/15/18 10/15/18 18:59 06:59 18:59 Intake Total 60 Output Total 800 200 Balance -740 -200 Weight 99.7 kg Intake: Oral 60 Output: Urine 800 200 Other: Voiding Method Toilet Toilet # Voids 1 1 1 - Labs CBC & Chem 7: 10/14/18 06:00 10/13/18 16:00 Labs: Abnormal Lab Results - Last 24 Hours (Table) 10/14/18 10/14/18 10/14/18 Range/Units 06:00 10:54 16:39 POC Glucose (mg/dL) 138 H 109 H (75-99) mg/dL Total Creatine Kinase 21 L (30-135) U/L 10/14/18 10/15/18 Range/Units 20:36 06:09 POC Glucose (mg/dL) 146 H 119 H (75-99) mg/dL Total Creatine Kinase (30-135) U/L
[2018-10-15] MEDS: LORazepam 1 MG TAB PO PRN ×2 (10:09→18:02)
--- NOTE | 2018-10-15 10:38 | P.PN ---
Subjective Progress Note Date: 10/15/18 Principal diagnosis: allergic reaction Patient is a 57-year-old female past medical history fibromyalgia, chronic fatigue syndrome, and for migraine headaches who presented to the emergency department with complains of facial flushing, lip tingling, tongue swelling, and palpitations. She has been seen 3 times in the ER for similar symptoms over the past week. This all started after wearing a Holter monitor resulting in skin outbreak. Patient has a history of severe ALLERGIES. She's been evaluated by an loss prevention guard twice in the past month as a child and one as an adult. She did not tolerate ALLERGY shots. She states that she is now reacting to things that she hasn't reacted to in the past. She was seen in the ER and underwent an extensive evaluation. Her initial vital signs showed a heart rate of 133 and a blood pressure of 158/111. Her laboratory analysis showed an elevated white blood cell count of 21.5 she was started on steroids and admitted for further monitoring. There was concern for carcinoid syndrome or pheochromocytoma. Collection of 24-hour urine catecholamines and blood metanephrines were ordered. Patient seen and examined at bedside. She states she continues to have ALLERGIC reactions. She states the steroid is helping somewhat. She believes that the trigger was wearing her Holter monitor. She states she is now reacting, everything including food she could've tolerated the past. She stays with anything with perfumes, dyes, preservatives, or additives. We discussed prior history as outlined above. She would be willing to see ALLERGY as an outpatient. Still with intermittent tongue swelling every times she eats, it singh, now with rash on chest. Objective - Vital Signs Vital signs: Vital Signs Temp 98.1 F 10/15/18 09:47 Pulse 91 10/15/18 09:47 Resp 18 10/15/18 09:47 BP 160/93 10/15/18 09:47 Pulse Ox 98 10/15/18 09:47 Intake & Output 10/14/18 10/15/18 10/15/18 18:59 06:59 18:59 Intake Total 60 Output Total 800 200 Balance -740 -200 Weight 99.7 kg Intake: Oral 60 Output: Urine 800 200 Other: Voiding Method Toilet Toilet # Voids 1 1 1 - Exam General: non toxic, no distress, appears at stated age Derm: + Erythema bilateral cheeks and chin, erythema with small raised area of anterior chest wall warm, dry Head: atraumatic, normocephalic, symmetric Eyes: EOMI, no lid lag, anicteric sclera Mouth: no lip lesion, mucus membranes moist Cardiovascular: S1S2 reg, no murmur, positive posterior tibial pulse bilateral, Lungs: CTA bilateral, no rhonchi, no rales , no accessory muscle use Abdominal: soft, nontender to palpation, no guarding, no appreciable organomegaly Neuro: CN II-XI grossly intact, no focal neuro deficits Psych: Alert, oriented, appropriate affect - Labs CBC & Chem 7: 10/14/18 06:00 10/13/18 16:00 Labs: Abnormal Lab Results - Last 24 Hours (Table) 10/14/18 10/14/18 10/14/18 Range/Units 06:00 10:54 16:39 POC Glucose (mg/dL) 138 H 109 H (75-99) mg/dL Total Creatine Kinase 21 L (30-135) U/L 10/14/18 10/15/18 Range/Units 20:36 06:09 POC Glucose (mg/dL) 146 H 119 H (75-99) mg/dL Total Creatine Kinase (30-135) U/L Assessment and Plan Assessment: Tachycardia associated with facial flushing and hypotension -Workup for carcinoid syndrome and pheochromocytoma are pending -Continue with telemetry -Echocardiogram normal -Cardiology recommendations appreciated Severe ALLERGIC reactions - rash on face worsening today, continue with IV steroids as failed oral steroids. 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 Leukocytosis - likely due to stress and steroids - decreasing on recheck Obesity - structured outpatient weight loss Fibromyalgia - outpatient follow up. DVT prophylaxis: Likely home in AM Discussed with: Patient, nursing Anticipated discharge: [address]: home A total of 35 minutes was spent on the care of this complex patient more than 50% of the time was spent in counseling and care coordination.
[2018-10-15] MEDS: HYDROmorphone 0.5 MG/0.5 ML SYRINGE IVP PRN ×2 (11:20→16:03)
[2018-10-15] MEDS: LORATADINE 10 MG TAB PO SCH (11:20)
[2018-10-15 11:44] LABS: Glucose,Whole Blood 116 mg/dL (75-99)
[2018-10-15] MEDS: HYOSCYAMINE SULFATE 0.125 MG TAB PO PRN (13:57)
[2018-10-15 14:49] VITALS: BMI 36.6
[2018-10-15 16:43] LABS: Glucose,Whole Blood 118 mg/dL (75-99)
--- NOTE | 2018-10-15 19:47 | P.CONS ---
History of Present Illness - Reason for Consult Consult date: 10/15/18 Possible mass cell activation syndrome, leukocytosis - History of Present Illness The patient is a 56-year-old white female, with a history of multiple allergies, since sausage wrapper. These include multiple food as well as environmental allergies. The patient states that as a child, she received injections for desensitiation, which however were not effective and made her feel worse. She had another attempt at desensitization in adulthood, with similar results. Regarding her current admission, the patient states that she had not been feeling well for some time, with no energy and motivation. She was having some palpitations, and had a Holter monitor placed. She then presented to the emergency room 2, with a rash around the leads, feeling of swelling of her lips, mouth and throat, as well as elevated blood pressure and heart rate. She was discharged from the ER on steroids and antihistamines, but came back 2 days in a row complaining of similar symptoms. She was therefore admitted and started on IV steroids. Consult was placed due to concern for a possible underlying neoplastic cause such as mass cell neoplasm, carcinoid, or pheochromocytoma. Review of Systems Constitutional: Reports fatigue Eyes: denies blurred vision, denies pain Ears: deny: decreased hearing, ear discharge, earache, tinnitus Ears, nose, mouth and throat: Reports as per HPI, Reports neck fullness/pressure Cardiovascular: Reports as per HPI, Reports palpitations Respiratory: Reports congestion Gastrointestinal: Reports as per HPI (food allergies- nausea, diarrhea with certain foods) Genitourinary: Denies dysuria, Denies hematuria Menstruation: Reports postmenopausal Musculoskeletal: Denies myalgias Integumentary: Reports color changes, Reports rash Neurological: Reports weakness Psychiatric: Reports anxiety Endocrine: Reports fatigue, Reports flushing, Denies weight change Hematologic/Lymphatic: Reports as per HPI Allergic/Immunologic: Reports as per HPI, Reports allergic rhinitis, Reports an gioedema, Reports seasonal allergies, Reports urticaria Past Medical History Past Medical History: Fibromyalgia, GERD/Reflux, Liver Disease Additional Past Medical History / Comment(s): Fibromyalgia, IBS, Chronic fatigue, elevated liver enzymes unknown etiology, chronic back pain (broken back) History of Any Multi-Drug Resistant Organisms: None Reported Past Surgical History: Cholecystectomy, Hysterectomy, Orthopedic Surgery Additional Past Surgical History / Comment(s): 2004 hysterectomy 2011 exp lap for scar tissue, 1999 right elbow tendon release, 2002 left elbow tendon release, 2011 gallbladder removed, occipital nerve steriod injections., ankle Past Anesthesia/Blood Transfusion Reactions: Postoperative Nausea & Vomiting (PONV) Past Psychological History: No Psychological Hx Reported Smoking Status: Never smoker Past Alcohol Use History: None Reported Past Drug Use History: Marijuana - Past Family History Mother Family Medical History: No Reported History Medications and Allergies Home Medications Medication Instructions Recorded Confirmed Type Verapamil HCl [Verapamil ER] 180 mg PO HS 09/13/14 10/13/18 History Famotidine [Pepcid] 20 mg PO BID #20 tablet 10/12/18 10/13/18 Rx Hyoscyamine Sulfate [Levsin-Sl] 0.125 mg SL DAILY PRN 10/12/18 10/13/18 History Ranitidine HCl [Zantac] 150 mg PO BID 10/12/18 10/13/18 History diphenhydrAMINE HCL [Children's 25 mg PO Q4H PRN 10/12/18 10/13/18 History Benadryl Allergy Chews] predniSONE 50 mg PO DAILY #5 tablet 10/12/18 10/13/18 Rx Allergies Allergy/AdvReac Type Severity Reaction Status Date / Time Beef Containing Products Allergy Severe Rash/Hives Verified 10/15/18 14:23 [place] And Derivatives Allergy Severe Rash/Hives Verified 10/15/18 14:26 [[place]] corn Allergy Severe Rash/Hives Verified 10/15/18 14:25 tomato Allergy Severe Rash/Hives Verified 10/15/18 14:27 wheat Allergy Severe Rash/Hives Verified 10/15/18 14:24 aspirin Allergy Anaphylaxis Verified 10/13/18 16:19 Milk Containing Products Allergy Nausea & Verified 10/14/18 07:13 [Dairy] Vomiting prednisone AdvReac Severe Increased Verified 10/13/18 16:19 Blood Pressure adhesive tape AdvReac Unknown Verified 10/13/18 16:19 ciprofloxacin [From Cipro] AdvReac Tendonitis Verified 10/13/18 16:19 duloxetine HCl AdvReac Hallucinations/Suicidal Verified 10/13/18 16:19 [From Cymbalta] Ideations latex AdvReac Unknown Verified 10/13/18 16:19 morphine AdvReac Migraine Verified 10/13/18 16:19 topiramate [From Topamax] AdvReac Hallucinati Verified 10/13/18 16:19 ons artificial sweetner Allergy Severe Rash/Hives Uncoded 10/15/18 14:28 processed meats Allergy Severe Rash/Hives Uncoded 10/15/18 14:29 Physical Exam Vitals: Vital Signs Temp Pulse Pulse Resp BP BP Pulse Ox 10/15/18 16:00 99.0 F 85 16 132/82 95 10/15/18 12:00 98.4 F 79 18 144/84 94 L 10/15/18 09:47 98.1 F 91 18 160/93 98 10/15/18 08:00 97.6 F 88 18 139/91 99 10/15/18 04:25 98.2 F 76 18 132/79 95 10/15/18 00:18 77 10/15/18 00:06 97.2 F L 77 18 128/61 97 10/14/18 20:06 78 10/14/18 20:02 98 F 78 18 124/72 93 L Intake and Output 10/15/18 10/15/18 10/15/18 06:59 14:59 22:59 Output Total 200 Balance -200 Output: Urine 200 Other: Voiding Method Toilet Toilet Toilet # Voids 1 1 Weight 99.7 kg 99.7 kg Results CBC & Chem 7: 10/14/18 06:00 10/13/18 16:00 Labs: Abnormal Lab Results - Last 24 Hours (Table) 10/14/18 10/15/18 10/15/18 Range/Units 20:36 06:09 11:42 POC Glucose (mg/dL) 146 H 119 H 116 H (75-99) mg/dL 10/15/18 Range/Units 16:39 POC Glucose (mg/dL) 118 H (75-99) mg/dL Comments: Echo report reviewed Chest x-ray: report reviewed Assessment and Plan (1) Allergic reaction Narrative/Plan: The patient has a known diagnosis of multiple allergies, including food allergies and seasonal. The patient feels that there has been some change in her symptoms, compared to her usual baseline, as described in the HPI. The concern therefore risk for a possible underlying neoplasm, such as carcinoid, mastocytosis, or pheochromocytoma. Clinically her overall picture is less consistent with carcinoid or pheochromocytoma. Positive allergy testing with allergens, as well as a ngioedema/rash/urticarial symptoms are not characteristic of the above. The patient's symptoms seem to occur in relation to definite exposures, and not spontaneously, which is what would be expected with these conditions. Labile blood pressure and palpitations can occur with pheochromocytoma. It is possible that the patient may have true allergies, as well as one of these conditions occurring concurrently. Her presentation is even less clinically consistent with carcinoid. It is reasonable to do lab testing for the above however. Testing for pheochromocytoma has been ordered. I will order serotonin and chromogranin levels. Mass cell activation syndrome related to neoplasm , specifically mastocytosis is somewhat more likely. However again typically in that condition, positive allergy testing, and symptoms occurring generally in relation to specific exposures, is not characteristic. I will order tryptase and histamine levels. However normal levels would be nonspecific as the patient has been on steroids and antihistamines. CT of the chest abdomen and pelvis will also be ordered. If the above workup is negative for a neoplastic condition, then the patient can consider follow-up with allergy/immunology, possibly at a tertiary institution as an outpatient Continue current management, which would be appropriate for acute symptoms, even if there is an underlying neoplastic condition. Current Visit: No Status: Acute Code(s): T78.40XA - ALLERGY, UNSPECIFIED, INITIAL ENCOUNTER SNOMED Code(s): 801509048
[2018-10-15] MEDS ORDERED: IOPAMIDOL-300 CONTRAST 30 ML VIAL (ORAL USE) PO PRN (19:48)
[2018-10-15 20:39] LABS: Glucose,Whole Blood 124 mg/dL (75-99)
[2018-10-15] MEDS: VERAPAMIL SR 180 MG TABLET.ER PO SCH (21:18)
[2018-10-16] MEDS: SODIUM CHLORIDE 0.9% 1,000 ML IV SCH ×2 (06:39→07:59)
[2018-10-16 06:55] LABS: Glucose,Whole Blood 116 mg/dL (75-99)
[2018-10-16] MEDS: LORazepam 2 MG/ML INJ IV PRN (06:57)
[2018-10-16] MEDS: INSULIN ASPART (NovoLOG) 100 UNIT/ML VIAL SQ SCH (06:57)
[2018-10-16] MEDS: methylPREDNISolone SOD SUCCI 125 MG/2 ML VIAL IV SCH (06:57)
[2018-10-16] MEDS: HYDROmorphone 0.5 MG/0.5 ML SYRINGE IVP PRN (07:58)
[2018-10-16] MEDS: FAMOTIDINE 20 MG TAB PO SCH (07:59)
[2018-10-16] MEDS: LORATADINE 10 MG TAB PO SCH (07:59)
--- NOTE | 2018-10-16 09:23 | CT ---
EXAMINATION TYPE: CT ChestAbdPelvis w con DATE OF EXAM: 10/15/2018 INDICATION: Possible pheochromocytoma. COMPARISON: CT abdomen pelvis 02/13/2014, CTA chest 08/31/2012 CT DLP: 1416.7 mGycm CONTRAST: Performed with Oral Contrast and with IV Contrast, patient injected with 100 mL of Isovue 300. TECHNIQUE: Axial images at 5 mm thick sections. Reconstructed images in the coronal plane. Delayed images through the kidneys. FINDINGS: CT CHEST: Portion of the thyroid visualized is normal. No suspicious lung nodules or focal infiltrates are present. No enlarged mediastinal or hilar adenopathy is evident. The ascending aorta diameter at the level of the main pulmonary artery is 2.6 cm. The main pulmonary artery diameter at the bifurcation is 2.[address] ABDOMEN: Liver: There is interval development of several hypodensities within the liver. This would include a 1.0 cm hypodensity within the upper left lobe liver with a 13 Hounsfield unit measurement, series 201 image 43. A larger hypodensity within the anterior medial right lobe liver measuring 8 Hounsfield un its and 2.7 cm. This has enlarged in size from the comparison. Subcortical hypodensity within the pos terior superior right lobe liver measuring 1.2 cm 11 Hounsfield units. Series 201 image 48. Findings are likely related to cysts. Given the change and some irregularity of the left lobe probable cyst, m onitoring is recommended. Spleen: Normal Pancreas: Normal Adrenal glands: The adrenal glands are normal. No nodularity or enlargement of the adrenal glands is evident. No extra-adrenal masses are identified. Gallbladder: Surgically absent Kidneys: No masses are evident. No hydronephrosis is present. Extrarenal pelves are present bilatera lly. No cysts are present. Delayed images were obtained through the kidneys, which remain unremarkab le. Aorta: Normal Inferior vena cava: Normal. CT PELVIS: Loops of bowel within the abdomen and pelvis are normal. There are loops of bowel which are incom pletely distended or lack oral contrast limiting their evaluation. Appendix: Normal as visualized. Urinary bladder: Normal. Genitourinary structures: Uterus is absent. Adnexal regions appear clear Osseous structures: No suspicious lytic or sclerotic lesions. IMPRESSIONS: 1. No suspicious changes to suggest pheochromocytoma based on radiographic findings. 2. Enlarging and developing hepatic hypodensities, likely cysts. Monitoring with ultrasound is recomm ended.
[2018-10-16 11:43] VITALS: BP 151/76; PULSE 81; RESP 18; TEMP 98.3
[2018-10-16 11:51] LABS: Glucose,Whole Blood 146 mg/dL (75-99)
--- NOTE | 2018-10-16 14:55 | P.PN ---
Subjective Progress Note Date: 10/16/18 Principal diagnosis: HTN, tachycardia In f/u today pt c/o tremor in the right hand, she states concerns that why she has "reactions" to everything cannot be figured out. She voiced concerns that she is not absorbing B12, when I asked her why she thought that she stated her last B12 level was 15,000. She states allergic reaction to numerous substances, her reaction is typically shakes and HTN, when asked about anaphylaxis she states she "used to have and epi pen". Objective - Vital Signs Vital signs: Vital Signs Temp 98.3 F 10/16/18 11:42 Pulse 81 10/16/18 12:00 Resp 18 10/16/18 12:00 BP 151/76 10/16/18 11:42 Pulse Ox 96 10/16/18 11:42 Intake & Output 10/15/18 10/16/18 10/16/18 18:59 06:59 18:59 Intake Total 840 240 Output Total 200 200 Balance -200 640 240 Weight 99.7 kg Intake: Intake, IV Titration 600 Amount Sodium Chloride 0.9% 1, 600 000 ml @ 100 mls/hr IV . Q10H [facility] Rx#:[id number] Oral 240 240 Output: Urine 200 200 Other: Voiding Method Toilet Toilet Toilet # Voids 1 3 - Constitutional General appearance: Present: average body habitus, cooperative, mild distress - EENT Eyes: Present: anicteric sclerae, EOMI ENT: Present: hearing grossly normal - Respiratory Respiratory: bilateral: CTA - Cardiovascular Rhythm: regular Heart sounds: normal: S1, S2 Abnormal Heart Sounds: Absent: systolic murmur, diastolic murmur, rub, S3 Gallop, S4 Gallop, click, other - Peripheral edema leg Peripheral Edema: bilateral: None - Gastrointestinal General gastrointestinal: Present: normal bowel sounds, soft - Integumentary Integumentary: Present: normal - Neurologic Neurologic Comment(s): tremor noticed in right hand during discussion Neurologic: Present: CNII-XII intact - Musculoskeletal Musculoskeletal: Present: strength equal bilaterally - Psychiatric Psychiatric: Present: A&O x's 3, appropriate affect, intact judgment & insight - Labs CBC & Chem 7: 10/14/18 06:00 10/13/18 16:00 Labs: Abnormal Lab Results - Last 24 Hours (Table) 10/15/18 10/15/18 10/16/18 Range/Units 16:39 20:38 06:54 POC Glucose (mg/dL) 118 H 124 H 116 H (75-99) mg/dL 10/16/18 Range/Units 11:50 POC Glucose (mg/dL) 146 H (75-99) mg/dL - Imaging and Cardiology CT scan - abdomen: report reviewed CT scan - chest: report reviewed CT scan - pelvis: report reviewed Assessment and Plan Plan: CT CAP reviewed with pt and family at bedside. There are 2 areas in the liver identified in report as cysts-pt states that this is known- recommended continued f/u. Work up for pheochromocytoma, carcinoid and mastocytosis is still pending B12 level was slightly elevated when checked last month, just > 1200. Encouraged pt to f/u with Specialists as directed Will follow up on the labs that have been ordered and contact pt for f/u if necessary
--- NOTE | 2018-10-16 19:40 | P.DS ---
Providers Date of admission: 10/13/18 17:12 Expected date of discharge: 10/16/18 Attending physician: Pratima Buck MD Consults: 10/14/18 08:08 Consult Physician Routine Consulting Provider: Iain Mac Consult Reason/Comments: Tachycardia Do you want consulting provider notified?: Yes 10/14/18 08:32 Consult Physician Routine Consulting Provider: Chapincito Montalvo Consult Reason/Comments: Allergic reaction, concern for mast cell activation syndrome Do you want consulting provider notified?: Yes Primary care physician: Neelima Martinez MD Hospital Course: Discharge Diagnosis: Allergic reaction- dermatitis, facial flushing, tachycardia Sinus tachycardia Leukocytosis Obesity Fibromyalgia Hospital Course: Patient is a 57-year-old female past medical history fibromyalgia, chronic fatigue syndrome, and for migraine headaches who presented to the emergency department with complains of facial flushing, lip tingling, tongue swelling, and palpitations. She has been seen 3 times in the ER for similar symptoms over the past week. This all started after wearing a Holter monitor resulting in skin outbreak. Patient has a history of severe ALLERGIES. She's been evaluated by an pickler helper twice in the past once as a child and one as an adult. She did not tolerate ALLERGY shots. She states that she is now reacting to things that she hasn't reacted to in the past. She was seen in the ER and underwent an extensive evaluation. Her initial vital signs showed a heart rate of 133 and a blood pressure of 158/111. Her laboratory analysis showed an elevated white blood cell count of 21.5 she was started on steroids and admitted for further monitoring. She was seen by cardio and echo and tele were normal. There was concern for carcinoid syndrome or pheochromocytoma. Collection of 24- hour urine catecholamines and blood metanephrines were ordered. There was also concern for histamine intolerance or mast cell activation syndrome. Seen by Oncology and CT chest,abd, and pelvis without definitive lesion. Trypptase, chromogranin A, serotonin, and histamine levels ordered. May be false negative d ue to steroids and antihistamines. During her stay she felt that she continued to have reactions to multiple substances, blood draws, and food. No facial swelling, redness, shortness of breath, wheezing noted. BP labile but well controlled. Discussed with patient multiple times needing to see pickler helper. Patient dets significant RODARTE requiring dilaudid with episode and ativan seems to help with spasms and anxiety associated with episdoes. All tests are send outs and will take multiple days to recieve results. Patient did not want to leave the hospital as we did not have a definitive answer as to why her life long allergies have worsened. I discussed with her and her that they need to continue an outpatient evaluation. [facility] information [facility] and [facility]. Discharged home in stable condition. She felt prednisoen was making symptoms worse so chose dexamethasone for discharge with taper ans this should not cross react with prednisone allergy. Attempt to call Dr. Martinez for hand off. Not in Office at time of discharge, however patient does have an appt with her in the morning. Patient discharged home. Pending results: 24 hour urine catcholamines, plasma free metanephrines, chromogranin A, Histamine levels, serotonin, tryptase Patient seen and examined at bedside. Still feels as though she is having reactions to things. Including blood draws and food. Upset as no definitive result given. Vital signs reviewed and stable. General: non toxic, no distress, appears at stated age Derm: Butterfly facial rash- improving, redness over chest wall improed warm, dry Head: atraumatic, normocephalic, symmetric Eyes: EOMI, no lid lag, anicteric sclera Psych: Alert, oriented, appropriate affect A total of 45 minutes of time were spent preparing this complex discharge summary . Pertinent Studies: echo preserved EF CT chest, abd and pelvis- liver cysts Patient Condition at Discharge: Fair Plan - Discharge Summary Discharge Rx Participant: No New Discharge Prescriptions: New Loratadine [Claritin] 10 mg PO DAILY tab LORazepam [Ativan] 1 mg PO Q8HR PRN #12 tab PRN Reason: Anxiety Dexamethasone See Taper PO DAILY #11 tablet oxyCODONE-APAP 5-325MG [Percocet 5-325 mg] 1 tab PO Q4HR PRN 3 Days #18 tab PRN Reason: Pain Continue Verapamil HCl [Verapamil ER] 180 mg PO HS diphenhydrAMINE HCL [Children's Benadryl Allergy Chews] 25 mg PO Q4H PRN PRN Reason: Allergic Reaction Ranitidine HCl [Zantac] 150 mg PO BID Hyoscyamine Sulfate [Levsin-Sl] 0.125 mg SL DAILY PRN PRN Reason: ABDOMINAL PAIN Famotidine [Pepcid] 20 mg PO BID #20 tablet Discontinued predniSONE 50 mg PO DAILY #5 tablet Discharge Medication List Verapamil HCl [Verapamil ER] 180 mg PO HS 09/13/14 [History] Famotidine [Pepcid] 20 mg PO BID #20 tablet 10/12/18 [Rx] Hyoscyamine Sulfate [Levsin-Sl] 0.125 mg SL DAILY PRN 10/12/18 [History] Ranitidine HCl [Zantac] 150 mg PO BID 10/12/18 [History] diphenhydrAMINE HCL [Children's Benadryl Allergy Chews] 25 mg PO Q4H PRN 10/12/18 [History] Dexamethasone See Taper PO DAILY #11 tablet 10/16/18 [Rx] LORazepam [Ativan] 1 mg PO Q8HR PRN #12 tab 10/16/18 [Rx] Loratadine [Claritin] 10 mg PO DAILY tab 10/16/18 [Rx] oxyCODONE-APAP 5-325MG [Percocet 5-325 mg] 1 tab PO Q4HR PRN 3 Days #18 tab 10/16/18 [Rx] Follow up Appointment(s)/Referral(s): Cee Graves MD [STAFF PHYSICIAN] - 1 Week Neelima Martinez MD [Primary Care Provider] - 10/19/18 5:20 pm Patient Instructions/Handouts: Food Allergy (ED), Anaphylaxis (ED), Allergies (ED) Activity/Diet/Wound Care/Special Instructions: resume prior diet activity as tolerated [facility] [phone] Discharge Disposition: HOME SELF-CARE
[2018-10-18 10:17] LABS: Dopamine 24 Hr Urine 241 ug/day (65-400); Epinephrine 24 Hr Urine <2 ug/day (0-20); Norepinephrine 24 Hr Urine 16 ug/day (15-80); Total Catecholamines Urine 16 ug/day (15-100); Urine Creatinine,24 Hr 1.5 gm/24h (0.8-1.8)
[2018-10-19 18:34] LABS: Chromogranin A 47 ng/mL (0-95)
[2018-10-21 22:37] LABS: Metanephrine, Free <25 pg/mL (< OR = 57); Normetanephrine, Free <25 pg/mL (< OR = 148); Total, Free (MN + NMN) <25 pg/mL (< OR = 205)
== END 2018-10-16 14:30 | disposition home or self-care (01) ==
LOC: EC 15:25 → 3SCARD 17:12 → 1SOBS 10-15 09:45
PROVIDERS: ADMIT Family Medicine; ATTEND Family Medicine
DX: T78.3XXA Angioneurotic edema, initial encounter (principal); R23.2 Flushing; R00.2 Palpitations; R20.2 Paresthesia of skin; R25.2 Cramp and spasm; F41.9 Anxiety disorder, unspecified; L30.9 Dermatitis, unspecified; R00.0 Tachycardia, unspecified; D72.821 Monocytosis (symptomatic); R25.1 Tremor, unspecified; R10.9 Unspecified abdominal pain; R07.9 Chest pain, unspecified; D72.829 Elevated white blood cell count, unspecified; I95.9 Hypotension, unspecified; M79.7 Fibromyalgia; R53.82 Chronic fatigue, unspecified; I10 Essential (primary) hypertension; G43.909 Migraine, unspecified, not intractable, without status migrainosus; K21.9 Gastro-esophageal reflux disease without esophagitis; K58.9 Irritable bowel syndrome, unspecified; M54.9 Dorsalgia, unspecified; G89.29 Other chronic pain; K76.9 Liver disease, unspecified; Z87.892 Personal history of anaphylaxis; E66.9 Obesity, unspecified; Z68.36 Body mass index [BMI] 36.0-36.9, adult; R79.89 Other specified abnormal findings of blood chemistry; Z90.49 Acquired absence of other specified parts of digestive tract; Z79.899 Other long term (current) drug therapy; Z88.6 Allergy status to analgesic agent; Z88.1 Allergy status to other antibiotic agents; Z91.040 Latex allergy status; Z88.5 Allergy status to narcotic agent; Z88.8 Allergy status to other drugs, medicaments and biological substances; Z91.048 Other nonmedicinal substance allergy status; Z91.011 Allergy to milk products; Z91.018 Allergy to other foods
CPT/HCPCS: 96361 ×4; 96375 ×2; 96376 ×4; 96372; 96374; 99284; 36415; 93306; 83835; 86316; 85379; 80053; 84260; 83520; 84443; 83088; 82550; 82553; 83735; 84550; 84484; 85025; 85027; 82384; 82785; 71046; 71260; 74177; G0378 ×4; J0171; J2060 ×3; J2930 ×4; J1170 ×4; Q9967

== ENCOUNTER → 2018-11-16 | Outpatient (CLI) | payer BC, OTHER ==
--- NOTE | 2018-11-17 12:53 | MM ---
Reason for exam: screening (asymptomatic). Last mammogram was performed 1 year ago. History: Patient is postmenopausal and history of other cancer. Family history of breast cancer in maternal aunt at age 40, breast cancer in sister, and breast cancer in maternal aunt at age 50. Physical Findings: A clinical breast exam by your physician is recommended on an annual basis and results should be correlated with mammographic findings. MG 3D Screening Mammo W/Cad Bilateral CC and MLO view(s) were taken. Prior study comparison: November 11, 2017, bilateral MG 3d screening mammo w/cad. October 21, 2016, bilateral MG 3d screening mammo w/cad. There are scattered fibroglandular densities. There is chronic nodularity in the right breast. No significant changes when compared with prior studies. ASSESSMENT: Benign, BI-RAD 2 RECOMMENDATION: Routine screening mammogram of both breasts in 1 year.
== END | disposition home or self-care (01) ==
LOC: RADMAMWWP 08:14
PROVIDERS: ATTEND Family Medicine
DX: Z12.31 Encounter for screening mammogram for malignant neoplasm of breast (principal)
CPT/HCPCS: 77063; 77067

== ENCOUNTER → 2018-11-22 | Outpatient (CLI) | payer BC, OTHER ==
[2018-11-22 16:42] LABS: Basophils % (A) 1 %; Eosinophils # (A) 0.2 k/uL (0-0.7); Eosinophils % (A) 3 %; HCT 34.3 % (34.0-46.0); HGB 11.7 gm/dL (11.4-16.0); Lymphocytes # (A) 1.8 k/uL (1.0-4.8); Lymphocytes % (A) 32 %; MCH 33.4 pg (25.0-35.0); MCHC 34.2 g/dL (31.0-37.0); MCV 97.7 fL (80.0-100.0); Mean Platelet Volume 7.3; Monocytes # (A) 0.3 k/uL (0-1.0); Monocytes % (A) 6 %; Neutrophils # (A) 3.1 k/uL (1.3-7.7); Neutrophils % (A) 56 %; Platelet Count 327 k/uL (150-450); RBC 3.51 m/uL (3.80-5.40); RDW 14.6 % (11.5-15.5); WBC 5.6 k/uL (3.8-10.6)
[2018-11-22 23:08] LABS: Thyroid Peroxidase Antibodies 31.3 U/mL (0.0-60.0)
[2018-11-23 00:24] LABS: Gliadin AB IgA, Unit <0.2 U/mL
[2018-11-23 00:25] LABS: Albumin 4.1 g/dL (3.80-4.90); Albumin/Globulin Ratio 2.56 (1.60-3.17); Anion Gap 9.4 mmol/L (4.00-12.00); Calcium 9.3 mg/dL (8.7-10.3); Carbon Dioxide 25.6 mmol/L (21.6-31.8); Globulin 1.6 g/dL (1.6-3.3); Potassium 4.1 mmol/L (3.5-5.5); Total Bilirubin 0.8 mg/dL (0.2-1.2); Total Protein 5.7 g/dL (6.2-8.2)
[2018-11-23 01:49] LABS: Soybean IgE <0.10 kU/L
[2018-11-23 01:50] LABS: Walnut IgE (Food) <0.10 kU/L
[2018-11-23 02:04] LABS: Dermato. farinae IgE <0.10 kU/L
[2018-11-23 02:05] LABS: Dog Dander IgE <0.10 kU/L; Peanut IgE <0.10 kU/L; Shrimp IgE <0.10 kU/L
[2018-11-23 11:27] LABS: Anti-Endomysial IgA Antibody <1:10 Titer (<1:10)
[2018-11-23 12:55] LABS: Immunoglobulin A 66.6 mg/dL (60.0-350.0)
[2018-11-23 14:30] LABS: Almond IgE <0.35 kU/L (<0.35); Almond IgE Class CLASS 0; Alt. alternata IgE Class CLASS 0; Alternaria alternata IgE <0.35 kU/L (<0.35); Cashew IgE <0.35 kU/L (<0.35); Pecan IgE <0.35 kU/L (<0.35); Pecan IgE Class CLASS 0; Salmon IgE <0.35 kU/L (<0.35); Salmon IgE Class CLASS 0; Tuna IgE <0.35 kU/L (<0.35); Tuna IgE Class CLASS 0
== END ==
LOC: LABWHC1 15:29
PROVIDERS: ATTEND Allergy & Immunology
DX: K52.9 Noninfective gastroenteritis and colitis, unspecified (principal); T78.2XXD Anaphylactic shock, unspecified, subsequent encounter
CPT/HCPCS: 36415; 80053; 82784; 82785; 83516; 83520; 84436; 84439; 84443; 85025; 86003; 86255; 86376; 86800

== ENCOUNTER → 2018-12-04 | Outpatient (CLI) | payer BC, OTHER ==
[2018-12-05 10:44] LABS: Beef IgE <0.35 kU/L (<0.35); Beef IgE Class CLASS 0; Pork IgE Class CLASS 0
== END | disposition home or self-care (01) ==
LOC: LABWHC1 10:54
PROVIDERS: ATTEND Allergy & Immunology
DX: T78.2XXA Anaphylactic shock, unspecified, initial encounter (principal)
CPT/HCPCS: 36415; 86003

== ENCOUNTER 2018-12-31 23:22 | Emergency (ER) | payer BC, OTHER ==
[2018-12-31 23:32] VITALS: TEMP 98.4
[2018-12-31] MEDS ORDERED: LORazepam 2 MG/ML INJ IV STA (23:55)
--- NOTE | 2019-01-01 00:41 | ED ---
General Adult HPI - General Source: patient Mode of arrival: wheelchair Limitations: physical limitation <Pricilla Kaur - Last Filed: 01/01/19 01:43> <Tammie Bedoya - Last Filed: 01/01/19 01:54> - General Chief complaint: Allergic Reaction Stated complaint: Allergic Reaction, high/low BP Time Seen by Provider: 12/31/18 23:40 - History of Present Illness Initial comments: 58-year-old female patient with past medical history significant for ALLERGIC reaction, hypertension, and anxiety presents to the emergency department today for evaluation of hives to the left arm. Patient states a couple of hours ago she developed hives to left arm, states it was itching. States she then developed a sore throat and lip burning. Patient states that she has had multiple ALLERGIC reactions in the past and this is similar to her previous reactions. Patient states she did stop taking her maintenance antihistamine 3 days ago as she is supposed undergo ALLERGY testing on Tuesday. Patient denies taking any home medications currently for her symptoms. Patient states she did check her blood pressure home was in the 170s systolic. Patient states that all symptoms including high blood pressure and ALLERGIC symptoms started at the same time. Patient states she does feel a little anxious at this time. She denies any shortness of breath, lip swelling, or tongue swelling. Patient denies any recent fever, chills, chest pain, abdominal pain, nausea, vomiting, diarrhea, constipation, back pain, numbness, tingling, dizziness, weakness, hematuria, dysuria, urinary urgency, urinary frequency, headache, visual changes, or any other complaints. (Pricilla Kaur) - Related Data Home Medications Medication Instructions Recorded Confirmed Verapamil HCl [Verapamil ER] 180 mg PO HS 09/13/14 10/13/18 Hyoscyamine Sulfate [Levsin-Sl] 0.125 mg SL DAILY PRN 10/12/18 10/13/18 Ranitidine HCl [Zantac] 150 mg PO BID 10/12/18 10/13/18 diphenhydrAMINE HCL [Children's 25 mg PO Q4H PRN 10/12/18 10/13/18 Benadryl Allergy Chews] Previous Rx's Medication Instructions Recorded Famotidine [Pepcid] 20 mg PO BID #20 tablet 03/21/19 Dexamethasone See Taper PO DAILY #11 tablet 10/16/18 LORazepam [Ativan] 1 mg PO Q8HR PRN #12 tab 10/16/18 Loratadine [Claritin] 10 mg PO DAILY tab 10/16/18 oxyCODONE-APAP 5-325MG [Percocet 1 tab PO Q4HR PRN 3 Days #18 tab 10/16/18 5-325 mg] Allergies Allergy/AdvReac Type Severity Reaction Status Date / Time Beef Containing Products Allergy Severe Rash/Hives Verified 10/15/18 14:23 [place] And Derivatives Allergy Severe Rash/Hives Verified 12/31/18 23:33 [[place]] corn Allergy Severe Rash/Hives Verified 12/31/18 23:33 tomato Allergy Severe Rash/Hives Verified 12/31/18 23:33 wheat Allergy Severe Rash/Hives Verified 12/31/18 23:33 aspirin Allergy Anaphylaxis Verified 12/31/18 23:33 Milk Containing Products Allergy Nausea & Verified 12/31/18 23:33 [Dairy] Vomiting prednisone AdvReac Severe Increased Verified 12/31/18 23:33 Blood Pressure adhesive tape AdvReac Unknown Verified 12/31/18 23:33 ciprofloxacin [From Cipro] AdvReac Tendonitis Verified 12/31/18 23:33 duloxetine HCl AdvReac Hallucinations/Suicidal Verified 12/31/18 23:33 [From Cymbalta] Ideations latex AdvReac Unknown Verified 12/31/18 23:33 morphine AdvReac Migraine Verified 12/31/18 23:33 topiramate [From Topamax] AdvReac Hallucinati Verified 12/31/18 23:33 ons artificial sweetner Allergy Severe Rash/Hives Uncoded 12/31/18 23:33 processed meats Allergy Severe Rash/Hives Uncoded 12/31/18 23:33 Review of Systems ROS Other: All systems not noted in ROS Statement are negative. <Pricilla Kaur M - Last Filed: 01/01/19 01:43> ROS Other: All systems not noted in ROS Statement are negative. <Tammie Bedoya - Last Filed: 01/01/19 01:54> ROS Statement: Those systems with pertinent positive or pertinent negative responses have been documented in the HPI. Past Medical History Past Medical History: Fibromyalgia, GERD/Reflux, Liver Disease Additional Past Medical History / Comment(s): Fibromyalgia, IBS, Chronic fatigue, elevated liver enzymes unknown etiology, chronic back pain (broken back) History of Any Multi-Drug Resistant Organisms: None Reported Past Surgical History: Cholecystectomy, Hysterectomy, Orthopedic Surgery Additional Past Surgical History / Comment(s): 2005 hysterectomy 2012 exp lap for scar tissue, 1999 right elbow tendon release, 2002 left elbow tendon release, 2011 gallbladder removed, occipital nerve steriod injections., ankle Past Anesthesia/Blood Transfusion Reactions: Postoperative Nausea & Vomiting (PONV) Past Psychological History: No Psychological Hx Reported Smoking Status: Never smoker Past Alcohol Use History: None Reported Past Drug Use History: None Reported - Past Family History Mother Family Medical History: No Reported History <Pricilla Kaur - Last Filed: 01/01/19 01:43> General Exam Limitations: physical limitation General appearance: alert, in no apparent distress, other (This is a well-devel oped, well-nourished adult female patient in no acute distress. Vital signs upon presentation are temperature 98.4F, pulse 98, respirations 20, blood pressure 149/80, pulse ox 100% on room air.) Eye exam: Present: normal appearance, PERRL, EOMI. Absent: scleral icterus, conjunctival injection, periorbital swelling ENT exam: Present: normal exam, normal oropharynx, mucous membranes moist Respiratory exam: Present: normal lung sounds bilaterally. Absent: respiratory distress, wheezes, rales, rhonchi, stridor Cardiovascular Exam: Present: regular rate, normal rhythm, normal heart sounds. Absent: systolic murmur, diastolic murmur, rubs, gallop, clicks GI/Abdominal exam: Present: soft, normal bowel sounds. Absent: distended, tenderness, guarding, rebound, rigid Neurological exam: Present: alert, oriented X3, CN II-XII intact Psychiatric exam: Present: normal affect, normal mood Skin exam: Present: warm, dry, intact, normal color, rash (There is one erythematous wheal noted to the patients left wrist. No surrounding erythema, no swelling. Lesion is nonvesicular.) <Pricilla Kaur M - Last Filed: 01/01/19 01:43> Course Vital Signs 12/31/18 01/01/19 23:27 01:33 Temperature 98.4 F Pulse Rate 98 88 Respiratory 20 18 Rate Blood Pressure 149/80 116/74 O2 Sat by Pulse 100 99 Oximetry Medical Decision Making <Pricilla Kaur - Last Filed: 01/01/19 01:43> <Tammie Bedoya - Last Filed: 01/01/19 01:54> - Medical Decision Making 58-year-old female patient with past medical history significant for ALLERGIC reaction, hypertension and anxiety presents to the emergency department today for evaluation of hives to the left arm an elevated blood pressure. Patient states she does feel anxious. Physical examination did reveal 1 urticarial type wheal to the left wrist. No lip or tongue swelling. Lungs are clear to auscultation with no wheezing. Patient is scheduled to have ALLERGY testing performed on Tuesday. We did give patient 1 mg of Ativan here in the emergency department. Upon reevaluation patient does report resolution of symptoms. Vital signs have improved, blood pressure is normal. It is felt that her symptoms today are more related to anxiety been ALLERGIC reaction. She is instructed to take Benadryl immediately should symptoms return or worsen. She is instructed to return here for any increase in symptoms. She is instructed to follow-up with her primary care physician for recheck in 1-2 days. She is instructed to follow-up with her loom repairer for further evaluation as she has planned. Return parameters discussed in detail. She verbalizes understanding and agrees this plan. (Pricilla Kaur) I was available for consultation in the emergency department. The history and physical exam were done by the midlevel provider. I was consulted for this patient's care. I reviewed the case with the midlevel provider and based on their presentation of the patient, I agree with the assessment, medical decision making and plan of care as documented. Chart was dictated using [employer] dictation software. Attempts were made to correct any dictation errors however some typographical errors may persist. (Tammie Bedoya) Disposition Is patient prescribed a controlled substance at d/c from ED?: No Time of Disposition: 01:31 <Pricilla Kaur - Last Filed: 01/01/19 01:43> <Tammie Bedoya - Last Filed: 01/01/19 01:54> Clinical Impression: Urticaria Disposition: HOME SELF-CARE Condition: Good Instructions (If sedation given, give patient instructions): Urticaria (ED) Additional Instructions: Follow-up with your loom repairer as you have planned. Follow-up with her primary care physician for recheck in 1-2 days. Return to the emergency department immediately for any new, worsening, or concerning symptoms. Referrals: Neeilma Martinez MD [Primary Care Provider] - 1-2 days
[2019-01-01 01:34] VITALS: BP 116/74; PULSE 88; RESP 18
== END 2019-01-01 02:29 | disposition home or self-care (01) ==
LOC: EC 23:22
DX: L50.9 Urticaria, unspecified (principal); K21.9 Gastro-esophageal reflux disease without esophagitis; I10 Essential (primary) hypertension; Z79.899 Other long term (current) drug therapy; Z91.048 Other nonmedicinal substance allergy status; Z88.6 Allergy status to analgesic agent; Z91.011 Allergy to milk products; Z88.8 Allergy status to other drugs, medicaments and biological substances; Z88.1 Allergy status to other antibiotic agents; Z88.5 Allergy status to narcotic agent; Z91.040 Latex allergy status
CPT/HCPCS: 99283; 96374; J2060

== ENCOUNTER → 2019-01-05 | Outpatient (CLI) | payer BC, OTHER | END | disposition home or self-care (01) | LOC: LABWHC1 11:36 | PROVIDERS: ATTEND Allergy & Immunology | DX: D47.09 Other mast cell neoplasms of uncertain behavior (principal) | CPT/HCPCS: 36415 ==

== ENCOUNTER 2019-09-14 20:22 | Observation (INO) | payer BC, OTHER ==
[2019-09-14] MEDS ORDERED: SODIUM CHLORIDE 0.9% 1,000 ML IV STA ×2 (20:56)
[2019-09-14] MEDS ORDERED: SODIUM CHLORIDE 0.9% 500 ML 500 ML IV STA (20:56)
--- NOTE | 2019-09-14 20:56 | ED ---
Dizziness HPI - General Chief Complaint: Dizziness Stated Complaint: Hypertension,Dizzy,Weak Time Seen by Provider: 09/14/19 20:35 Source: patient, RN notes reviewed, old records reviewed Mode of arrival: ambulatory Limitations: no limitations - History of Present Illness Initial Comments: This is a 58-year-old male DF for evaluation. Patient was recently in the flu is a week dizzy lightheaded for about 7 days of pressures been labile sometimes symptoms low salicylate is running low she felt near syncopal very weak with persistent nausea vomiting diarrhea. No current fevers no abdominal pain no chest pain or shortness of breath MD Complaint: dizziness, near syncope -: days(s) Timing: gradual onset Description: "room spinning", lightheadedness, nausea, near-syncope History of Same: No History of Trauma: No Severity: moderate Improves With: remaining still, rehydration Worsens With: movement Associated Symptoms: fever/chills, loss of appetite, malaise, weakness - Related Data Home Medications Medication Instructions Recorded Confirmed Verapamil HCl [Verapamil ER] 180 mg PO HS 09/13/14 10/13/18 Hyoscyamine Sulfate [Levsin-Sl] 0.125 mg SL DAILY PRN 10/12/18 10/13/18 Ranitidine HCl [Zantac] 150 mg PO BID 10/12/18 10/13/18 diphenhydrAMINE HCL [Children's 25 mg PO Q4H PRN 10/12/18 10/13/18 Benadryl Allergy Chews] Previous Rx's Medication Instructions Recorded Famotidine [Pepcid] 20 mg PO BID #20 tablet 10/12/18 Dexamethasone See Taper PO DAILY #11 tablet 10/16/18 LORazepam [Ativan] 1 mg PO Q8HR PRN #12 tab 10/16/18 Loratadine [Claritin] 10 mg PO DAILY tab 10/16/18 oxyCODONE-APAP 5-325MG [Percocet 1 tab PO Q4HR PRN 3 Days #18 tab 10/16/18 5-325 mg] Allergies Allergy/AdvReac Type Severity Reaction Status Date / Time Beef Containing Products Allergy Severe Rash/Hives Verified 09/14/19 20:28 [place] And Derivatives Allergy Severe Rash/Hives Verified 09/14/19 20:28 [[place]] corn Allergy Severe Rash/Hives Verified 09/14/19 20:28 tomato Allergy Severe Rash/Hives Verified 09/14/19 20:28 wheat Allergy Severe Rash/Hives Verified 09/14/19 20:28 aspirin Allergy Anaphylaxis Verified 09/14/19 20:28 Milk Containing Products Allergy Nausea & Verified 09/14/19 20:28 [Dairy] Vomiting prednisone AdvReac Severe Increased Verified 09/14/19 20:28 Blood Pressure adhesive tape AdvReac Unknown Verified 09/14/19 20:28 ciprofloxacin [From Cipro] AdvReac Tendonitis Verified 09/14/19 20:28 duloxetine HCl AdvReac Hallucinations/Suicidal Verified 09/14/19 20:28 [From Cymbalta] Ideations latex AdvReac Unknown Verified 09/14/19 20:28 morphine AdvReac Migraine Verified 09/14/19 20:28 topiramate [From Topamax] AdvReac Hallucinati Verified 09/14/19 20:28 ons artificial sweetner Allergy Severe Rash/Hives Uncoded 09/14/19 20:28 processed meats Allergy Severe Rash/Hives Uncoded 09/14/19 20:28 Review of Systems ROS Statement: Those systems with pertinent positive or pertinent negative responses have been documented in the HPI. ROS Other: All systems not noted in ROS Statement are negative. Past Medical History Past Medical History: Fibromyalgia, GERD/Reflux, Liver Disease Additional Past Medical History / Comment(s): Fibromyalgia, IBS, Chronic fatigue, elevated liver enzymes unknown etiology, chronic back pain (broken back) History of Any Multi-Drug Resistant Organisms: None Reported Past Surgical History: Cholecystectomy, Hysterectomy, Orthopedic Surgery Additional Past Surgical History / Comment(s): 2004 hysterectomy 2011 exp lap for scar tissue, 1999 right elbow tendon release, 2002 left elbow tendon release, 2011 gallbladder removed, occipital nerve steriod injections., ankle Past Anesthesia/Blood Transfusion Reactions: Postoperative Nausea & Vomiting (PONV) Past Psychological History: No Psychological Hx Reported Smoking Status: Never smoker Past Alcohol Use History: None Reported Past Drug Use History: None Reported - Past Family History Mother Family Medical History: No Reported History General Exam Limitations: no limitations General appearance: alert, in no apparent distress Head exam: Present: atraumatic, normocephalic, normal inspection Eye exam: Present: normal appearance, PERRL, EOMI. Absent: scleral icterus, conjunctival injection, periorbital swelling ENT exam: Present: normal exam, mucous membranes moist Neck exam: Present: normal inspection. Absent: tenderness, meningismus, lymphadenopathy Respiratory exam: Present: normal lung sounds bilaterally. Absent: respiratory distress, wheezes, rales, rhonchi, stridor Cardiovascular Exam: Present: regular rate, normal rhythm, normal heart sounds. Absent: systolic murmur, diastolic murmur, rubs, gallop, clicks GI/Abdominal exam: Present: soft, normal bowel sounds. Absent: distended, tenderness, guarding, rebound, rigid Extremities exam: Present: normal inspection, full ROM, normal capillary refill. Absent: tenderness, pedal edema, joint swelling, calf tenderness Back exam: Present: normal inspection Neurological exam: Present: alert, oriented X3, CN II-XII intact Psychiatric exam: Present: normal affect, normal mood Skin exam: Present: warm, dry, intact, normal color. Absent: rash Course Vital Signs 09/14/19 09/14/19 20:25 22:16 Temperature 98.1 F Pulse Rate 110 H 89 Respiratory 20 18 Rate Blood Pressure 150/70 123/72 O2 Sat by Pulse 99 98 Oximetry - Reevaluation(s) Reevaluation #1: 09/14/19 23:37 Medical records reviewed Reevaluation #2: 09/14/19 23:37 Feels better with hydration blood blood pressure still running low is patient does have high blood pressure baseline Medical Decision Making - Medical Decision Making 58 female DF for evaluation, patient will be admitted for dehydration, patient feeling better here in the ER with some fluid resuscitation limit for continued management - Lab Data Result diagrams: 09/14/19 21:50 09/14/19 21:50 Lab Results 09/14/19 09/14/19 09/14/19 Range/Units 21:50 21:50 21:50 WBC 7.0 (3.8-10.6) k/uL RBC 4.18 (3.80-5.40) m/uL Hgb 13.2 (11.4-16.0) gm/dL Hct 39.2 (34.0-46.0) % MCV 93.6 (80.0-100.0) fL MCH 31.6 (25.0-35.0) pg MCHC 33.7 (31.0-37.0) g/dL RDW 13.0 (11.5-15.5) % Plt Count 314 (150-450) k/uL Neutrophils % 63 % Lymphocytes % 23 % Monocytes % 6 % Eosinophils % 5 % Basophils % 1 % Neutrophils # 4.4 (1.3-7.7) k/uL Lymphocytes # 1.6 (1.0-4.8) k/uL Monocytes # 0.4 (0-1.0) k/uL Eosinophils # 0.3 (0-0.7) k/uL Basophils # 0.0 (0-0.2) k/uL Sodium 140 (137-145) mmol/L Potassium 4.3 (3.5-5.1) mmol/L Chloride 105 (98-107) mmol/L Carbon Dioxide 28 (22-30) mmol/L Anion Gap 7 mmol/L BUN 8 (7-17) mg/dL Creatinine 0.65 (0.52-1.04) mg/dL Est GFR (CKD-EPI)AfAm >90 (>60 ml/min/1.73 sqM) Est GFR (CKD-EPI)NonAf >90 (>60 ml/min/1.73 sqM) Glucose 109 H (74-99) mg/dL Plasma Lactic Acid Thang 1.9 (0.7-2.0) mmol/L Calcium 9.7 (8.4-10.2) mg/dL Phosphorus 2.5 (2.5-4.5) mg/dL Magnesium 2.1 (1.6-2.3) mg/dL Total Bilirubin 0.4 (0.2-1.3) mg/dL AST 34 (14-36) U/L ALT 41 H (4-34) U/L Alkaline Phosphatase 102 (38-126) U/L Troponin I (0.000-0.034) ng/mL Total Protein 6.5 (6.3-8.2) g/dL Albumin 3.8 (3.5-5.0) g/dL Urine Color Urine Appearance (Clear) Urine pH (5.0-8.0) Ur Specific [place] (1.001-1.035) Urine Protein (Negative) Urine Glucose (UA) (Negative) Urine Ketones (Negative) Urine Blood (Negative) Urine Nitrite (Negative) Urine Bilirubin (Negative) Urine Urobilinogen (<2.0) mg/dL Ur Leukocyte Esterase (Negative) 09/14/19 09/14/19 Range/Units 21:50 21:50 WBC (3.8-10.6) k/uL RBC (3.80-5.40) m/uL Hgb (11.4-16.0) gm/dL Hct (34.0-46.0) % MCV (80.0-100.0) fL MCH (25.0-35.0) pg MCHC (31.0-37.0) g/dL RDW (11.5-15.5) % Plt Count (150-450) k/uL Neutrophils % % Lymphocytes % % Monocytes % % Eosinophils % % Basophils % % Neutrophils # (1.3-7.7) k/uL Lymphocytes # (1.0-4.8) k/uL Monocytes # (0-1.0) k/uL Eosinophils # (0-0.7) k/uL Basophils # (0-0.2) k/uL Sodium (137-145) mmol/L Potassium (3.5-5.1) mmol/L Chloride (98-107) mmol/L Carbon Dioxide (22-30) mmol/L Anion Gap mmol/L BUN (7-17) mg/dL Creatinine (0.52-1.04) mg/dL Est GFR (CKD-EPI)AfAm (>60 ml/min/1.73 sqM) Est GFR (CKD-EPI)NonAf (>60 ml/min/1.73 sqM) Glucose (74-99) mg/dL Plasma Lactic Acid Thang (0.7-2.0) mmol/L Calcium (8.4-10.2) mg/dL Phosphorus (2.5-4.5) mg/dL Magnesium (1.6-2.3) mg/dL Total Bilirubin (0.2-1.3) mg/dL AST (14-36) U/L ALT (4-34) U/L Alkaline Phosphatase (38-126) U/L Troponin I <0.012 (0.000-0.034) ng/mL Total Protein (6.3-8.2) g/dL Albumin (3.5-5.0) g/dL Urine Color Colorless Urine Appearance Clear (Clear) Urine pH 6.0 (5.0-8.0) Ur Specific [place] 1.003 (1.001-1.035) Urine Protein Negative (Negative) Urine Glucose (UA) Negative (Negative) Urine Ketones Negative (Negative) Urine Blood Negative (Negative) Urine Nitrite Negative (Negative) Urine Bilirubin Negative (Negative) Urine Urobilinogen <2.0 (<2.0) mg/dL Ur Leukocyte Esterase Negative (Negative) - Radiology Data Radiology results: report reviewed (Chest x-ray is negative for acute disease), image reviewed Disposition Clinical Impression: Tachycardia, Dehydration Disposition: ADMITTED IP TO THIS [facility] Condition: Good Instructions (If sedation given, give patient instructions): Dizziness (ED) Is patient prescribed a controlled substance at d/c from ED?: No Referrals: Sachin Wallace [Primary Care Provider] - 1-2 days
--- NOTE | 2019-09-14 21:32 | XR ---
EXAMINATION TYPE: XR chest 2V DATE OF EXAM: 09/14/2019 COMPARISON: 10/14/2018 HISTORY: Short of breath TECHNIQUE: 2 views FINDINGS: Heart and mediastinum are normal. Lungs are clear. Diaphragm is normal. Bony thorax is inta ct. IMPRESSION: Normal chest. No change.
[2019-09-14 22:12] LABS: Basophils % (A) 1 %; Eosinophils # (A) 0.3 k/uL (0-0.7); Eosinophils % (A) 5 %; HCT 39.2 % (34.0-46.0); HGB 13.2 gm/dL (11.4-16.0); Lymphocytes # (A) 1.6 k/uL (1.0-4.8); Lymphocytes % (A) 23 %; MCH 31.6 pg (25.0-35.0); MCHC 33.7 g/dL (31.0-37.0); MCV 93.6 fL (80.0-100.0); Mean Platelet Volume 7.6; Monocytes # (A) 0.4 k/uL (0-1.0); Monocytes % (A) 6 %; Neutrophils # (A) 4.4 k/uL (1.3-7.7); Neutrophils % (A) 63 %; Platelet Count 314 k/uL (150-450); RBC 4.18 m/uL (3.80-5.40)
[2019-09-14 22:19] LABS: Appearance,Urine Clear (Clear); Bilirubin,Urine Negative (Negative); Blood,Urine Negative (Negative); Color,Urine Colorless; Glucose,Urine (UA) Negative (Negative); Ketones,Urine Negative (Negative); Leukocyte Esterase,Urine Negative (Negative); Nitrite,Urine Negative (Negative); Protein,Urine Negative (Negative); Specific Gravity,Urine 1.003 (1.001-1.035); Urobilinogen,Urine <2.0 mg/dL (<2.0)
[2019-09-14 22:21] LABS: ALT 41 U/L (4-34); AST 34 U/L (14-36); African American GFR (CKD) >90 (>60 ml/min/1.73 sqM); Albumin 3.8 g/dL (3.5-5.0); Alkaline Phosphatase 102 U/L (38-126); Anion Gap 7 mmol/L; Blood Urea Nitrogen 8 mg/dL (7-17); Calcium 9.7 mg/dL (8.4-10.2); Carbon Dioxide 28 mmol/L (22-30); Chloride 105 mmol/L (98-107); Glucose 109 mg/dL (74-99); Magnesium 2.1 mg/dL (1.6-2.3); Non-African American GFR(CKD) >90 (>60 ml/min/1.73 sqM); Phosphorus 2.5 mg/dL (2.5-4.5); Potassium 4.3 mmol/L (3.5-5.1); Sodium 140 mmol/L (137-145); Total Bilirubin 0.4 mg/dL (0.2-1.3); Total Protein 6.5 g/dL (6.3-8.2)
[2019-09-14] MEDS ORDERED: SODIUM CHLORIDE 0.9% 1,000 ML IV ONE (23:36)
[2019-09-14] MEDS ORDERED: ONDANSETRON 4 MG/2 ML VIAL IVP PRN (23:38)
[2019-09-15] MEDS ORDERED: OSELTAMIVIR 75 MG CAP PO ONE
--- NOTE | 2019-09-15 01:32 | P.HPIM ---
History of Present Illness H&P Date: 09/15/19 The patient is a 58-year-old female with a PMH of fibromyalgia and GERD who presented to the ED due to feeling lethargic and dizzy at home. The patient reports that her symptoms started roughly a week ago on last Tuesday when she feels that she contracted the flu. The patient reports being exposed to flu 2 days prior by her granddaughter after which she developed nausea, diarrhea, vomiting, fever, chills, and body aches. She reports that she had significant diarrhea which started roughly 7 days ago and only resolved the day prior. She reports that during this time she was unable to tolerate anything by mouth and was barely able to keep down liquids. She reports feeling lightheaded and de hydrated. She notes that she continued to feel lightheaded and became concerned, at which time she came to the ED. She reports no episodes of loss of consciousness or falls. She also reported continued mild nonproductive cough, though denied fever, chills, and vomiting, or further diarrhea. She underwent an extensive evaluation in the emergency room with chest x-ray unremarkable, EKG showing sinus tachycardia at 106 bpm, and laboratory evaluation shows a WBC count 7, hemoglobin 13.2, platelets 214, sodium 140, potassium 4.3, BUN 8, creatinine 0.65, troponin less than 0.012, and an unremarkable UA. The patient was noted to be somewhat hypotensive in the emergency room with BP of 107/57 and which time the emergency room physician became concerned and wanted to monitor the patient further. Review of Systems Pertinent positives and negatives as discussed in HPI, a complete review of systems was performed and all other systems are negative. Past Medical History Past Medical History: Fibromyalgia, GERD/Reflux, Liver Disease Additional Past Medical History / Comment(s): Fibromyalgia, IBS, Chronic fatigue, elevated liver enzymes unknown etiology, chronic back pain (broken back) History of Any Multi-Drug Resistant Organisms: None Reported Past Surgical History: Cholecystectomy, Hysterectomy, Orthopedic Surgery Additional Past Surgical History / Comment(s): 2004 hysterectomy 2011 exp lap for scar tissue, 1999 right elbow tendon release, 2002 left elbow tendon release, 2011 gallbladder removed, occipital nerve steriod injections., ankle Past Anesthesia/Blood Transfusion Reactions: Postoperative Nausea & Vomiting (PONV) Past Psychological History: No Psychological Hx Reported Smoking Status: Never smoker Past Alcohol Use History: None Reported Past Drug Use History: None Reported - Past Family History Mother Family Medical History: No Reported History Medications and Allergies Home Medications Medication Instructions Recorded Confirmed Type Verapamil HCl [Verapamil ER] 180 mg PO HS 09/13/14 09/15/19 History Hyoscyamine Sulfate [Levsin-Sl] 0.125 mg SL DAILY PRN 10/12/18 10/13/18 History Ranitidine HCl [Zantac] 150 mg PO BID 10/12/18 09/15/19 History Loratadine [Claritin] 10 mg PO DAILY tab 10/16/18 09/15/19 Rx LORazepam [Ativan] 1 mg PO BID 09/15/19 09/15/19 History Metoprolol Tartrate [Lopressor] 25 mg PO DAILY 09/15/19 09/15/19 History Allergies Allergy/AdvReac Type Severity Reaction Status Date / Time Beef Containing Products Allergy Severe Rash/Hives Verified 09/14/19 20:28 Kimble And Derivatives Allergy Severe Rash/Hives Verified 09/14/19 20:28 [Kimble] corn Allergy Severe Rash/Hives Verified 09/14/19 20:28 tomato Allergy Severe Rash/Hives Verified 09/14/19 20:28 wheat Allergy Severe Rash/Hives Verified 09/14/19 20:28 aspirin Allergy Anaphylaxis Verified 09/14/19 20:28 Milk Containing Products Allergy Nausea & Verified 09/14/19 20:28 [Dairy] Vomiting prednisone AdvReac Severe Increased Verified 09/14/19 20:28 Blood Pressure adhesive tape AdvReac Unknown Verified 09/14/19 20:28 ciprofloxacin [From Cipro] AdvReac Tendonitis Verified 09/14/19 20:28 duloxetine HCl AdvReac Hallucinations/Suicidal Verified 09/14/19 20:28 [From Cymbalta] Ideations latex AdvReac Unknown Verified 09/14/19 20:28 morphine AdvReac Migraine Verified 09/14/19 20:28 topiramate [From Topamax] AdvReac Hallucinati Verified 09/14/19 20:28 ons artificial sweetner Allergy Severe Rash/Hives Uncoded 09/14/19 20:28 processed meats Allergy Severe Rash/Hives Uncoded 09/14/19 20:28 Physical Exam Vitals: Vital Signs Temp Pulse Pulse Resp BP BP Pulse Ox 09/15/19 00:35 98.1 F 89 110/58 99 09/15/19 00:24 98.5 F 84 18 107/57 100 09/14/19 23:00 83 18 104/66 99 09/14/19 22:16 89 18 123/72 98 09/14/19 20:25 98.1 F 110 H 20 150/70 99 Intake and Output 09/14/19 09/14/19 09/15/19 14:59 22:59 06:59 Other: Weight 104.326 kg General: non toxic, no distress, appears at stated age, normal weight Derm: no unusual rashes/lesions no unusual ecchymoses, warm, dry Head: atraumatic, normocephalic, symmetric Eyes: EOMI, no lid lag, anicteric sclera, pupils equal round reactive to light ENT: Nose and ears atraumatic, no thrush, no pharyngeal erythema Neck: No thyromegaly, no cervical lymphadenopathy, trachea midline, supple Mouth: no lip lesion, mucus membranes moist Cardiovascular: S1S2 reg, no murmur, positive posterior tibial pulse bilateral, no edema, capillary refill less than 2 seconds Lungs: CTA bilateral, no rhonchi, no rales , no accessory muscle use Abdominal: soft, nontender to palpation, no guarding, no appreciable organomegaly, normal bowel sounds Ext: no gross muscle atrophy, muscle strength 5 out of 5 in all 4 extremities grossly, no contractures, Neuro: CN II-XI grossly intact, light touch intact all 4 extremities, finger to nose within normal limits, Psych: Alert, oriented, appropriate affect Results CBC & Chem 7: 09/14/19 21:50 09/14/19 21:50 Labs: Abnormal Lab Results - Last 24 Hours (Table) 09/14/19 Range/Units 21:50 Glucose 109 H (74-99) mg/dL ALT 41 H (4-34) U/L Assessment and Plan Plan: Dizziness, likely mild dehydration with tachycardia and borderline BP -Possibly due to persistent diarrhea in setting of influenza infection -Reports her diarrhea has resolved. C/w regular diet. -Continue with IV fluids -Monitor BMP -Fall precautions Hx of likely influenza infection -No longer meets criteria for Tamiflu -C/w IVFs DVT prophylaxis -Lovenox The patient is admitted with an anticipated less than 2 midnight stay for evaluation of borderline bp CODE STATUS: Full Code Discussed with: Patient Anticipated discharge date: 07-[address]: Home A total of 35 minutes was spent on the care of this complex patient more than 50 % of the time was spent in counseling and care coordination.
[2019-09-15] MEDS: LORATADINE 10 MG TAB PO SCH (07:31)
[2019-09-15] MEDS: ENOXAPARIN 40 MG/0.4 ML SYRINGE SQ SCH (07:31)
[2019-09-15] MEDS: PANTOPRAZOLE 40 MG/10 ML VIAL IVP SCH (07:31)
[2019-09-15] MEDS ORDERED: OSELTAMIVIR 75 MG CAP PO SCH (09:00)
--- NOTE | 2019-09-15 15:05 | ECHOF ---
Referral Reason:dizzziness MEASUREMENTS -------- HEIGHT: 165.1 cm WEIGHT: 104.3 kg BP: 107/69 RVIDd: 3.2 cm (< 3.3) IVSd: 1.0 cm (0.6 - 1.1) LVIDd: 4.2 cm (3.9 - 5.3) LVPWd: 1.1 cm (0.6 - 1.1) IVSs: 1.8 cm LVIDs: 2.6 cm LVPWs: 1.7 cm LAESV Index (A-L): 25.67 ml/m Ao Diam: 3.0 cm (2.0 - 3.7) AV Cusp: 1.7 cm (1.5 - 2.6) MV EXCURSION: 12.842 mm (> 18.000) MV EF SLOPE: 75 mm/s (70 - 150) EPSS: 0.7 cm MV E Jacinto: 0.86 m/s MV DecT: 197 ms MV A Jacinto: 1.11 m/s MV E/A Ratio: 0.77 RAP: 5.00 mmHg RVSP: 28.98 mmHg FINDINGS -------- Sinus rhythm. This was a technically good study. The left ventricular size is normal. There is borderline concentric left ventricular hypertrophy. Overall left ventricular systolic function is normal with, an EF between 55 - 60 %. The diastolic filling pattern is normal for the age of the patient 14.08. The right ventricle is normal in size. Normal LA size by volume 22+/-6 ml/m2. The right atrial size is normal. Interatrial and interventricular septum intact. There is no evidence of aortic regurgitation. There is no evidence of aortic stenosis. There is trace mitral regurgitation. Mild tricuspid regurgitation present. There is no evidence of pulmonary hypertension. The right v entricular systolic pressure, as measured by Doppler, is 28.98mmHg. There is no pulmonic regurgitation present. The aortic root size is normal. IVC Not well visulized. There is no pericardial effusion. CONCLUSIONS -------- 1. Sinus rhythm. 2. This was a technically good study. 3. The left ventricular size is normal. 4. There is borderline concentric left ventricular hypertrophy. 5. Overall left ventricular systolic function is normal with, an EF between 55 - 60 %. 6. The diastolic filling pattern is normal for the age of the patient 14.08 7. The right ventricle is normal in size. 8. Normal LA size by volume 22+/-6 ml/m2. 9. The right atrial size is normal. 10. Interatrial and interventricular septum intact. 11. There is no evidence of aortic regurgitation. 12. There is no evidence of aortic stenosis. 13. There is trace mitral regurgitation. 14. Mild tricuspid regurgitation present. 15. There is no evidence of pulmonary hypertension. 16. The right ventricular systolic pressure, as measured by Doppler, is 28.98mmHg. 17. There is no pulmonic regurgitation present. 18. The aortic root size is normal. 19. IVC Not well visulized. 20. There is no pericardial effusion. SENIOR TAX MANAGER: Yvette Louise RDCS
--- NOTE | 2019-09-15 17:08 | P.PN ---
Progress Note - Text Progress Note Date: 09/15/19 Patient was seen. Apparently patient was exposed to her granddaughter who was diagnosed with influenza B on Tuesday of last week and started feeling the symptoms on Tuesday of last week. Symptoms included diarrhea for around 5 days and nausea and vomiting that lasted until Tuesday. Patient continues to report generalized weakness and dizziness especially when going from a sitting to standing position. Patient appears to be in no acute distress. Dizziness History of influenza infection Elevated ALT Mast cell disease She will be continued on normal saline at 100 mL per hour. Orthostats will be checked. She has been placed on telemetry monitoring. Given her symptoms were last week, there is no reason to continue Tamiflu at this time. 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 Her blood pressure has been within normal limits during her hospitalization. We will continue verapamil and hold metoprolol. She does have a history of migraines for which verapamil has been helpful. Zantac will be started for history of GERD. Echocardiogram has been ordered as well. She is pending clinical improvement. Anticipated discharge in 1-2 days.
[2019-09-15] MEDS: SODIUM CHLORIDE 0.9% 1,000 ML IV SCH (17:38)
[2019-09-15] MEDS: FAMOTIDINE 20 MG TAB PO SCH (20:02)
[2019-09-15] MEDS ORDERED: VERAPAMIL SR 180 MG TABLET.ER PO SCH (21:00)
[2019-09-15] MEDS ORDERED: MONTELUKAST 10 MG TAB PO SCH (21:00)
[2019-09-15] MEDS ORDERED: LORazepam 1 MG TAB PO SCH (21:00)
[2019-09-16] MEDS: SODIUM CHLORIDE 0.9% 1,000 ML IV SCH (05:31)
[2019-09-16] MEDS: FAMOTIDINE 20 MG TAB PO SCH (07:18)
[2019-09-16] MEDS: PANTOPRAZOLE 40 MG/10 ML VIAL IVP SCH (07:18)
[2019-09-16] MEDS: LORATADINE 10 MG TAB PO SCH (07:19)
[2019-09-16] MEDS: ENOXAPARIN 40 MG/0.4 ML SYRINGE SQ SCH (07:19)
[2019-09-16 07:25] VITALS: BP 130/77; PULSE 84; RESP 16; TEMP 98.3
[2019-09-16] MEDS ORDERED: LORazepam 0.5 MG TAB PO SCH (09:00)
--- NOTE | 2019-09-16 11:33 | P.DS ---
Providers Date of admission: 09/14/19 23:36 Expected date of discharge: 09/16/19 Attending physician: Meseret Shankar MD Primary care physician: [facility] Course: The patient is a 58-year-old female with a PMH of fibromyalgia and GERD who presented to the ED due to feeling lethargic and dizzy at home. The patient reports that her symptoms started roughly a week ago on last Tuesday when she feels that she contracted the flu. The patient reports being exposed to flu 2 days prior by her granddaughter after which she developed nausea, diarrhea, vomiting, fever, chills, and body aches. She reports that she had significant d iarrhea which started roughly 7 days ago and only resolved the day prior. She reports that during this time she was unable to tolerate anything by mouth and was barely able to keep down liquids. She reports feeling lightheaded and dehydrated. She notes that she continued to feel lightheaded and became concerned, at which time she came to the ED. She reports no episodes of loss of consciousness or falls. She also reported continued mild nonproductive cough, though denied fever, chills, and vomiting, or further diarrhea. She underwent an extensive evaluation in the emergency room with chest x-ray unremarkable, EKG showing sinus tachycardia at 106 bpm, and laboratory evaluation shows a WBC count 7, hemoglobin 13.2, platelets 214, sodium 140, potassium 4.3, BUN 8, creatinine 0.65, troponin less than 0.012, and an unremarkable UA. The patient was noted to be somewhat hypotensive in the emergency room with BP of 107/57 and which time the emergency room physician became concerned and wanted to monitor the patient further. Patient was continued on normal saline at 100 mL/h. Orthostatics were checked and were negative. She was placed on telemetry monitoring. Given that her flu started over one week ago, there is no reason to continue Tamiflu. She did report a history of muscle disease for which Claritin and Singulair was continued. Patient reported a 20-30 pound weight gain over 2 months after being started on metoprolol for tachycardia. Metoprolol was held and she was restarted on verapamil given her history of migraines. Her pulse was within normal range during her hospitalization. Echocardiogram was done which showed EF 55-60% with normal diastolic function. Patient was seen and examined. No acute events overnight. Patient reports no further dizziness. She denies any chest pain, shortness of breath or palpitations. No nausea or vomiting. No fever or chills. No diarrhea. Tolerating diet well. General: [non toxic], [no distress], [appears at stated age] Derm: [warm], [dry] Head: [atraumatic], [normocephalic], [symmetric] Eyes: [EOMI], [no lid lag], [anicteric sclera] Mouth: [no lip lesion], [mucus membranes moist] Cardiovascular: [S1S2 reg], [no murmur], [positive DP pulse bilateral], Lungs: [CTA bilateral], [no rhonchi, no rales] , [no accessory muscle use] Ext: [no gross muscle atrophy], [no edema], [no contractures] Psych: [Alert], [oriented], [appropriate affect] Dizziness History of influenza infection Elevated ALT Mast cell disease Patient was hydrated overnight and her orthostatics will be checked this morning. She is dizziness free and orthostats are negative yesterday. Echocardiogram was within normal limits. Given her symptoms were last week, there is no reason to continue Tamiflu at this time. 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 Her blood pressure has been within normal limits during her hospitalization. Her pulse has been in the 80s while being on verapamil. She does have a history of migraines for which verapamil has been helpful. She reported not feeling well on the metoprolol along with the 20-30 pound weight gain over the past 2 months. Patient also states that Ativan helps with her tachycardia which she thinks is related to her mast cell disease. Patient was advised to continue Ativan and verapamil and to keep a log of her blood pressure and pulse. She will need to follow-up with her PCP for further management. I do think is reasonable to discontinue her beta jc at this time. We will give her a prescription for Ativan. She is to follow-up at [facility] for management of mast cell disease. Patient is advised to follow-up with her PCP within 3 days of discharge. Patient and family verbalized understanding of the plan. Pertinent Studies: Chest x-ray, echocardiogram Patient Condition at Discharge: Stable Plan - Discharge Summary Discharge Rx Participant: Yes New Discharge Prescriptions: Continue Ranitidine HCl [Zantac] 150 mg PO BID Hyoscyamine Sulfate [Levsin-Sl] 0.125 mg SL DAILY PRN PRN Reason: ABDOMINAL PAIN Loratadine [Claritin] 10 mg PO DAILY tab LORazepam [Ativan] 0.5 mg PO QAM Multivitamins, Thera [Multivitamin (formulary)] 1 tab PO DAILY Montelukast [Singulair] 10 mg PO HS Verapamil HCl [Verapamil ER] 180 mg PO HS LORazepam [Ativan] 1 mg PO HS #30 Discontinued Metoprolol Tartrate [Lopressor] 25 mg PO DAILY Discharge Medication List Hyoscyamine Sulfate [Levsin-Sl] 0.125 mg SL DAILY PRN 10/12/18 [History] Ranitidine HCl [Zantac] 150 mg PO BID 10/12/18 [History] Loratadine [Claritin] 10 mg PO DAILY tab 10/16/18 [Rx] LORazepam [Ativan] 0.5 mg PO QAM 09/15/19 [History] Montelukast [Singulair] 10 mg PO HS 09/15/19 [History] Multivitamins, Thera [Multivitamin (formulary)] 1 tab PO DAILY 09/15/19 [History] Verapamil HCl [Verapamil ER] 180 mg PO HS 09/15/19 [History] LORazepam [Ativan] 1 mg PO HS #30 09/16/19 [Rx] Follow up Appointment(s)/Referral(s): Sachin Wallace [Primary Care Provider] - 1-2 days Patient Instructions/Handouts: Dizziness (ED) Activity/Diet/Wound Care/Special Instructions: Diet: Low-salt Follow-up PCP within 3 days of discharge. Take all medications as advised. Come back to the ED for worsening dizziness, chest pain, shortness of breath or palpitations. Please drink plenty of fluids in the meantime. Discharge Disposition: HOME SELF-CARE
== END 2019-09-16 15:26 | disposition home or self-care (01) ==
LOC: EC 20:22 → 4SSUR 23:36
PROVIDERS: ADMIT Internal Medicine; ATTEND Internal Medicine
DX: R42 Dizziness and giddiness (principal); E86.0 Dehydration; M79.7 Fibromyalgia; K21.9 Gastro-esophageal reflux disease without esophagitis; R00.0 Tachycardia, unspecified; R74.0 Nonspecific elevation of levels of transaminase and lactic acid dehydrogenase [LDH]; D47.02 Systemic mastocytosis; G43.909 Migraine, unspecified, not intractable, without status migrainosus; Z20.828 Contact with and (suspected) exposure to other viral communicable diseases; I10 Essential (primary) hypertension; K58.9 Irritable bowel syndrome, unspecified; K76.9 Liver disease, unspecified; G89.29 Other chronic pain; M54.9 Dorsalgia, unspecified; Z90.710 Acquired absence of both cervix and uterus; Z88.5 Allergy status to narcotic agent; Z88.1 Allergy status to other antibiotic agents; Z91.040 Latex allergy status; Z91.011 Allergy to milk products; Z88.8 Allergy status to other drugs, medicaments and biological substances; Z91.048 Other nonmedicinal substance allergy status; Z90.49 Acquired absence of other specified parts of digestive tract; Z91.018 Allergy to other foods; Z79.899 Other long term (current) drug therapy
CPT/HCPCS: 96376; 96361 ×2; 96372 ×2; 96374; 99285; 36415; 93005; 93306; 80053; 83605; 83735; 84100; 84484; 85025; 81003; 71046; G0378 ×2; J1650 ×2; C9113 ×2

== ENCOUNTER → 2020-03-04 | Outpatient (CLI) | payer BC, OTHER ==
--- NOTE | 2020-03-06 11:33 | MM ---
Reason for exam: screening (asymptomatic). Last mammogram was performed 1 year and 4 months ago. History: Patient is postmenopausal and history of other cancer. Family history of breast cancer in maternal aunt at age 40, breast cancer in sister, and breast cancer in maternal aunt at age 50. Physical Findings: A clinical breast exam by your physician is recommended on an annual basis and results should be correlated with mammographic findings. MG 3D Screening Mammo W/Cad Bilateral CC and MLO view(s) were taken. Prior study comparison: November 16, 2018, bilateral MG 3d screening mammo w/cad. November 11, 2017, bilateral MG 3d screening mammo w/cad. There are scattered fibroglandular densities. There is chronic nodularity in the right breast. No significant changes when compared with prior studies. ASSESSMENT: Benign, BI-RAD 2 RECOMMENDATION: Routine screening mammogram of both breasts in 1 year.
== END | disposition home or self-care (01) ==
LOC: RADMAMWWP 13:13
PROVIDERS: ATTEND Family Medicine
DX: Z12.39 Encounter for other screening for malignant neoplasm of breast (principal)
CPT/HCPCS: 77063; 77067

== ENCOUNTER → 2020-12-29 | Outpatient (CLI) | payer BC, OTHER | END | disposition home or self-care (01) | LOC: LABWHC1 09:31 | PROVIDERS: ATTEND Internal Medicine Interventional Cardiology | DX: R00.0 Tachycardia, unspecified (principal) | CPT/HCPCS: 36415; 84439; 84443 ==

== ENCOUNTER → 2020-12-30 | Outpatient (CLI) | payer BC, OTHER | END | disposition home or self-care (01) | LOC: LABWHC1 13:25 | PROVIDERS: ATTEND Internal Medicine Interventional Cardiology | DX: R00.0 Tachycardia, unspecified (principal) | CPT/HCPCS: 36415; 84443 ==

== ENCOUNTER 2021-01-17 14:47 | Emergency (ER) | payer BC, OTHER ==
[2021-01-17 14:53] VITALS: RESP 16; TEMP 98.4
[2021-01-17] MEDS ORDERED: LORazepam 1 MG TAB PO STA (15:08)
[2021-01-17 15:18] VITALS: BP 148/73
--- NOTE | 2021-01-17 15:48 | XR ---
EXAMINATION TYPE: XR knee complete RT DATE OF EXAM: 01/17/2021 COMPARISON: NONE HISTORY: Knee pain TECHNIQUE: 3 views FINDINGS: There is no sign of fracture nor dislocation. Joint spaces show slight narrowing on the med ial compartment. There is no evidence of joint effusion. IMPRESSION: Slight narrowing of the medial joint space. No fracture.
--- NOTE | 2021-01-17 15:49 | XR ---
EXAMINATION TYPE: XR shoulder complete LT DATE OF EXAM: 01/17/2021 COMPARISON: NONE HISTORY: Pain TECHNIQUE: 3 views FINDINGS: I see no fracture nor dislocation. Glenohumeral joint is intact. There are no pathologic ca lcifications. IMPRESSION: Negative left shoulder exam.
--- NOTE | 2021-01-17 15:51 | XR ---
EXAMINATION TYPE: XR forearm LT DATE OF EXAM: 01/17/2021 COMPARISON: NONE HISTORY: Fall. Pain. TECHNIQUE: 3 views FINDINGS: There is a lucent line projected over the radial head on the lateral view suspicious for a intra-articular chip fracture. There is probably a small elbow joint effusion. IMPRESSION: Possible radial head chip fracture. Suggest repeat lateral view with slight different pos itioning.
--- NOTE | 2021-01-17 15:54 | XR ---
EXAMINATION TYPE: XR elbow limited LT DATE OF EXAM: 01/17/2021 COMPARISON: NONE HISTORY: Pain A single lateral view was obtained. The radial head has a possible intra-articular chip fracture on t he anterior aspect. IMPRESSION: Possible radial head chip fracture. Repeat lateral view with slight different angulation would be helpful for further evaluation.
--- NOTE | 2021-01-17 16:36 | ED ---
Upper Extremity HPI - General Chief Complaint: Extremity Injury, Upper Stated Complaint: Fall Time Seen by Provider: 01/17/21 14:54 Source: patient, EMS, RN notes reviewed Mode of arrival: EMS Limitations: no limitations - History of Present Illness Initial Comments: Patient is a 60-year-old female that presents to emergency department complaining of left elbow, left shoulder, right knee pain after falling while going down one step. She notes she does have a history of right knee pain and sees Dr. Arreguin. She notes that she just misstepped and fell landing on her left elbow right knee. She notes that her right elbow feels like his broken. She noted that she was in no apparent distress or pain and didn't need any pain medication at this time. She denied any weakness numbness tingling in her left upper extremity. She is noted was painful. She denied chest pain shortness breath headache nausea vomiting diarrhea constipation fever fatigue chills. - Related Data Home Medications Medication Instructions Recorded Confirmed Hyoscyamine Sulfate [Levsin-Sl] 0.125 mg SL DAILY PRN 10/12/18 09/15/19 Ranitidine HCl [Zantac] 150 mg PO BID 10/12/18 09/15/19 LORazepam [Ativan] 0.5 mg PO QAM 09/15/19 09/15/19 Montelukast [Singulair] 10 mg PO HS 09/15/19 09/15/19 Multivitamins, Thera [Multivitamin 1 tab PO DAILY 09/15/19 09/15/19 (formulary)] Verapamil HCl [Verapamil ER] 180 mg PO HS 09/15/19 09/15/19 Previous Rx's Medication Instructions Recorded Loratadine [Claritin] 10 mg PO DAILY tab 10/16/18 LORazepam [Ativan] 1 mg PO HS #30 09/16/19 Allergies Allergy/AdvReac Type Severity Reaction Status Date / Time Beef Containing Products Allergy Severe Rash/Hives Verified 09/15/19 11:10 Dickey And Derivatives Allergy Severe Rash/Hives Verified 09/15/19 11:10 [Dickey] corn Allergy Severe Rash/Hives Verified 09/15/19 11:10 tomato Allergy Severe Rash/Hives Verified 09/15/19 11:10 wheat Allergy Severe Rash/Hives Verified 09/15/19 11:10 aspirin Allergy Anaphylaxis Verified 09/15/19 11:10 Milk Containing Products Allergy Nausea & Verified 09/15/19 11:10 [Dairy] Vomiting prednisone AdvReac Severe Increased Verified 09/15/19 11:10 Blood Pressure adhesive tape AdvReac Unknown Verified 09/15/19 11:10 ciprofloxacin [From Cipro] AdvReac Tendonitis Verified 09/15/19 11:10 duloxetine HCl AdvReac Hallucinations/Suicidal Verified 09/15/19 11:10 [From Cymbalta] Ideations latex AdvReac Unknown Verified 09/15/19 11:10 morphine AdvReac Migraine Verified 09/15/19 11:10 topiramate [From Topamax] AdvReac Hallucinati Verified 09/15/19 11:10 ons artificial sweetner Allergy Severe Rash/Hives Uncoded 09/14/19 20:28 processed meats Allergy Severe Rash/Hives Uncoded 09/14/19 20:28 Review of Systems ROS Statement: Those systems with pertinent positive or pertinent negative responses have been documented in the HPI. ROS Other: All systems not noted in ROS Statement are negative. Past Medical History Past Medical History: Asthma, Cancer, Fibromyalgia, GERD/Reflux, Liver Disease, Pneumonia Additional Past Medical History / Comment(s): Fibromyalgia, IBS, Chronic fatigue, non-alcoholic fatty liver disease, chronic back pain (broken back), systemic mast cell disease, squamous cell skin cancer (removed), basal cell removed from body History of Any Multi-Drug Resistant Organisms: None Reported Past Surgical History: Adenoidectomy, Cholecystectomy, Hysterectomy, Orthopedic Surgery, Tonsillectomy Additional Past Surgical History / Comment(s): tonsillectomy and adenoidectomy 1965, 2005 hysterectomy 2011 exp lap for scar tissue, 1999 right elbow tendon release, 2002 left elbow tendon release, 2011 gallbladder removed, occipital nerve steriod injections., ankle surgery 2016, skin cancer removed from chest and right breast Past Anesthesia/Blood Transfusion Reactions: Postoperative Nausea & Vomiting (PONV) Past Psychological History: No Psychological Hx Reported Past Alcohol Use History: None Reported Past Drug Use History: None Reported - Past Family History Father Family Medical History: COPD, Hyperlipidemia, Hypertension Sister(s) Additional Family Medical History / Comment(s): one sister with bipolar. one sister with bipolar and schizophrenia Brother(s) Family Medical History: Blood Disorder, Deep Vein Thrombosis (DVT) Additional Family Medical History / Comment(s): blood clotting disorder,bipolar Mother Family Medical History: AFIB, Deep Vein Thrombosis (DVT), Hyperlipidemia, Hypertension, Renal Disease Additional Family Medical History / Comment(s): wagners, bi-polar, disassociative personality disorder, schizophrenia, passed from blood clot in the brain General Exam Limitations: no limitations General appearance: alert, in no apparent distress, obese Head exam: Present: atraumatic, normocephalic, normal inspection Eye exam: Present: normal appearance, PERRL, EOMI. Absent: scleral icterus, conjunctival injection, periorbital swelling Neck exam: Present: normal inspection Respiratory exam: Present: normal lung sounds bilaterally. Absent: respiratory distress, wheezes, rales, rhonchi, stridor Cardiovascular Exam: Present: regular rate, normal rhythm, normal heart sounds. Absent: systolic murmur, diastolic murmur, rubs, gallop, clicks Left Shoulder Exam: Present: normal inspection, full ROM. Absent: tenderness, swelling Elbow exam: Present: normal inspection, tenderness (Over the posterior aspect of the elbow), swelling (Minimal). Absent: full ROM (Secondary to pain and EMS splint pain in place), abrasion, laceration, ecchymosis, deformity, crepitus, dislocation Right Knee exam: Present: normal inspection. Absent: full ROM (Secondary to pain, patient notes that this is chronic) Neurological exam: Present: alert, oriented X3 Psychiatric exam: Present: normal affect, normal mood Skin exam: Present: warm, dry, intact, normal color. Absent: rash Course Vital Signs 01/17/21 01/17/21 14:49 15:18 Temperature 98.4 F Pulse Rate 90 Respiratory 16 Rate Blood Pressure 153/108 148/73 O2 Sat by Pulse 99 Oximetry Medical Decision Making - Medical Decision Making 60-year-old female complaining of left elbow, shoulder and right knee pain after falling. X-rays of the left forearm, left elbow, left shoulder and right knee ordered. X-rays show a possible radial head chip fracture. Images reviewed with Dr. Conte sail sign noted on imaging. Case discussed with Dr. Conte, patient can discharge home with follow-up to orthopedist. Patient notes that she does follow-up with Dr. Arreguin. - Radiology Data Radiology results: report reviewed, image reviewed Left elbow x-ray: Possible radial head chip fracture and repeat lateral view a slight different angulation of the helpful for further evaluation. Left shoulder x-ray: Negative left shoulder exam. Right knee x-ray: Slight narrowing of the medial joint space. No fracture. Disposition Clinical Impression: Radial head fracture Disposition: HOME SELF-CARE Condition: Stable Instructions (If sedation given, give patient instructions): Arm Fracture in Adults (ED) Additional Instructions: Please return to the Emergency Department if symptoms worsen or any other concerns. Follow-up with orthopedist as soon as possible. Keep splint in place throughout the day can take off to bathe. Take Tylenol Motrin as needed for pain control. Is patient prescribed a controlled substance at d/c from ED?: No Referrals: Sachin Wallace [Primary Care Provider] - 1-2 days Zen Arreguin MD [STAFF PHYSICIAN] - 1-2 days Time of Disposition: 16:35
[2021-01-17 16:38] VITALS: PULSE 76
== END 2021-01-17 16:41 | disposition home or self-care (01) ==
LOC: EC 14:47
DX: S52.122A Displaced fracture of head of left radius, initial encounter for closed fracture (principal); M25.561 Pain in right knee; J45.909 Unspecified asthma, uncomplicated; K21.9 Gastro-esophageal reflux disease without esophagitis; Z79.899 Other long term (current) drug therapy; Z91.011 Allergy to milk products; Z91.018 Allergy to other foods; Z88.6 Allergy status to analgesic agent; Z88.8 Allergy status to other drugs, medicaments and biological substances; Z91.09 Other allergy status, other than to drugs and biological substances; Z88.1 Allergy status to other antibiotic agents; Z91.040 Latex allergy status; Z88.5 Allergy status to narcotic agent; W10.9XXA Fall (on) (from) unspecified stairs and steps, initial encounter; Y93.01 Activity, walking, marching and hiking; Y92.009 Unspecified place in unspecified non-institutional (private) residence as the place of occurrence of the external cause
CPT/HCPCS: 99283

== ENCOUNTER → 2021-02-23 | Outpatient (CLI) | payer BC, OTHER | END | disposition home or self-care (01) | LOC: LABWHC1 10:08 | PROVIDERS: ATTEND Internal Medicine Critical Care Medicine | DX: Z20.822 Contact with and (suspected) exposure to COVID-19 (principal) | CPT/HCPCS: 36415; 86769 ==

== ENCOUNTER → 2021-03-20 | Outpatient (CLI) | payer BC, OTHER ==
--- NOTE | 2021-03-23 09:47 | MM ---
Reason for exam: screening (asymptomatic). Last mammogram was performed 1 year and 1 month ago. History: Patient is postmenopausal and history of other cancer. Family history of breast cancer in maternal aunt at age 40, breast cancer in sister, and breast cancer in maternal aunt at age 50. Physical Findings: A clinical breast exam by your physician is recommended on an annual basis and results should be correlated with mammographic findings. MG 3D Screening Mammo W/Cad Bilateral CC and MLO view(s) were taken. Prior study comparison: March 04, 2020, bilateral MG 3d screening mammo w/cad. November 16, 2018, bilateral MG 3d screening mammo w/cad. There are scattered fibroglandular densities. There is chronic nodularity in the right breast. There is no discrete abnormality. ASSESSMENT: Benign, BI-RAD 2 RECOMMENDATION: Routine screening mammogram of both breasts in 1 year.
== END | disposition home or self-care (01) ==
LOC: RADMAMWWP 09:30
PROVIDERS: ATTEND Family Medicine
DX: Z12.39 Encounter for other screening for malignant neoplasm of breast (principal); Z80.3 Family history of malignant neoplasm of breast
CPT/HCPCS: 77063; 77067

== ENCOUNTER → 2021-07-22 | Outpatient (CLI) | payer BC, OTHER | END | disposition home or self-care (01) | LOC: LABWHC1 11:10 | PROVIDERS: ATTEND Family Medicine | DX: J06.9 Acute upper respiratory infection, unspecified (principal); B34.9 Viral infection, unspecified | CPT/HCPCS: U0003; C9803 ==

== ENCOUNTER → 2022-03-31 | Outpatient (CLI) | payer BC, OTHER ==
--- NOTE | 2022-04-09 16:37 | MM ---
Reason for Exam: Screening (asymptomatic). Last mammogram was performed 1 year(s) and 1 month(s) ago. Patient History: Menarche at age 14. First Full-Term at age 24. Hysterectomy at age 45. Postmenopausal. Patient has history of breast feeding. Other cancer. Maternal aunt had breast cancer, age 40. Maternal aunt had breast cancer, age 60. Maternal aunt had breast cancer, age 50. Sister had breast cancer, age 46. Risk Values: Cee 5 year model risk: 2.7%. NCI Lifetime model risk: 12.1%. Prior Study Comparison: 11/16/2018 Bilateral Screening Mammogram, [facility]. 03/04/2020 Bilateral Screening Mammogram, [facility]. 03/20/2021 Bilateral Screening Mammogram, [facility]. Tissue Density: There are scattered fibroglandular densities. Findings: Analyzed By CAD. There is a stable nodule in the upper outer right breast. No suspicious groups of microcalcifications, spiculated or lobular masses, architectural distortion or other secondary signs of malignancy are mammographically apparent. Overall Assessment: Benign, BI-RAD 2 Management: Screening Mammogram of both breasts in 1 year. A negative mammogram report should not preclude additional follow up of suspicious palpable abnormalities. Patient should continue monthly self breast exam. A clinical breast exam by your physician is recommended on an annual basis and results should be correlated with mammographic findings. Electronically signed and approved by: Calvin Horan D.O. Radiologis
== END | disposition home or self-care (01) ==
LOC: RADMAMWWP 13:42
PROVIDERS: ATTEND Family Medicine
DX: Z12.31 Encounter for screening mammogram for malignant neoplasm of breast (principal)
CPT/HCPCS: 77063; 77067

== ENCOUNTER 2022-06-22 09:49 | Day surgery (SDC) | payer BC, OTHER ==
[2022-06-15 13:45] VITALS: BMI 38.8
[2022-06-22] MEDS: LACTATED RINGERS 1,000 ML IV SCH ×2 (10:02→10:49)
[2022-06-22 10:21] VITALS: TEMP 98
[2022-06-22] MEDS ORDERED: PROPOFOL 10 MG/ML 20 ML VIAL IV ONE (10:50)
--- NOTE | 2022-06-22 10:54 | P.GSHP ---
History of Present Illness H&P Date: 06/22/22 Chief Complaint: Colon polyps 61-year-old female here today for colonoscopy. Last colonoscopy 5 years ago. Patient with chronic abdominal pain. History of mild diverticulitis in the past she thinks. Intermittent pains left lower quadrant at times. Hyperplastic polyp on her last colonoscopy 5 years ago. She had a history of polyps prior to that as well. 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 History of Any Multi-Drug Resistant Organisms: None Reported Past Surgical History: Adenoidectomy, Cholecystectomy, Hysterectomy, Orthopedic Surgery, Tonsillectomy Additional Past Surgical History / Comment(s): Exploratory lap for scar tissue, bilateral elbow tendon release, occipital nerve steriod injections, ankle surgery, skin cancer removed from chest and right breast, bilateral meniscectomy, left eye lens replacement. Past Anesthesia/Blood Transfusion Reactions: Motion Sickness, Postoperative Nausea & Vomiting (PONV) Past Psychological History: No Psychological Hx Reported Smoking Status: Former smoker Past Alcohol Use History: Rare Additional Past Alcohol Use History / Comment(s): Smoked socially in her early twenties. Past Drug Use History: Marijuana Additional Drug Use History / Comment(s): Hx medical marijuana, none in over 3 yrs. - Past Family History Father Family Medical History: COPD, Hyperlipidemia, Hypertension Sister(s) Additional Family Medical History / Comment(s): One sister with bipolar. One sister with bipolar and schizophrenia. Brother(s) Family Medical History: Blood Disorder, Deep Vein Thrombosis (DVT) Additional Family Medical History / Comment(s): Blood clotting disorder, bipolar. Mother Family Medical History: AFIB, Hyperlipidemia, Hypertension, Renal Disease Additional Family Medical History / Comment(s): Wagners, bipolar, disassociative personality disorder, schizophrenia, passed from blood clot in the brain. Medications and Allergies Home Medications Medication Instructions Recorded Confirmed Type Hyoscyamine Sulfate [Levsin-Sl] 0.125 mg SL DAILY PRN 10/12/18 06/22/22 History Montelukast [Singulair] 10 mg PO HS 09/15/19 06/22/22 History Verapamil HCl [Verapamil ER] 180 mg PO HS 09/15/19 06/22/22 History Albuterol Inhaler [Ventolin Hfa 1 - 2 puff INHALATION Q6H PRN 06/15/22 06/22/22 History Inhaler] Breo (Unknown Dose) 1 puff INHALATION QAM 06/15/22 06/22/22 History EPINEPHrine (Auto Inject) [Epipen] 0.3 mg IM ONCE PRN 06/15/22 06/22/22 History Famotidine [Pepcid] 20 mg PO BID 06/15/22 06/22/22 History LORazepam 0.5 mg PO DIRECTED PRN 06/15/22 06/22/22 History Loratadine [Claritin] 10 mg PO BID PRN 06/15/22 06/22/22 History Metoprolol Succinate [Metoprolol 25 mg PO HS 06/15/22 06/22/22 History Succinate ER] Omeprazole 20 mg PO HS 06/15/22 06/22/22 History hydrOXYzine HCL 10 mg PO DIRECTED PRN 06/15/22 06/22/22 History Allergies Allergy/AdvReac Type Severity Reaction Status Date / Time Beef Containing Products Allergy Severe Rash/Hives Verified 06/22/22 10:21 [place] And Derivatives Allergy Severe Rash/Hives Verified 06/22/22 10:21 [[place]] corn Allergy Severe Rash/Hives Verified 06/22/22 10:21 shellfish derived [Shellfish] Allergy Severe Swelling Verified 06/22/22 10:21 tomato Allergy Severe Rash/Hives Verified 06/22/22 10:21 wheat Allergy Severe Rash/Hives Verified 06/22/22 10:21 aspirin Allergy Anaphylaxis Verified 06/22/22 10:21 Milk Containing Products Allergy Nausea & Verified 06/22/22 10:21 [Dairy] Vomiting prednisone AdvReac Severe Increased Verified 06/22/22 10:21 Blood Pressure adhesive tape AdvReac Unknown Verified 06/22/22 10:21 ciprofloxacin [From Cipro] AdvReac Tendonitis Verified 06/22/22 10:21 duloxetine HCl AdvReac Hallucinations/Suicidal Verified 06/22/22 10:21 [From Cymbalta] Ideations latex AdvReac Unknown Verified 06/22/22 10:21 morphine AdvReac Migraine Verified 06/22/22 10:21 topiramate [From Topamax] AdvReac Hallucinati Verified 06/22/22 10:21 ons artificial sweetner Allergy Severe Rash/Hives Uncoded 06/22/22 10:21 processed meats Allergy Severe Rash/Hives Uncoded 06/22/22 10:21 Surgical - Exam Vital Signs Temp Pulse Resp BP Pulse Ox 98 F 72 16 155/73 99 06/22/22 10:13 06/22/22 10:13 06/22/22 10:13 06/22/22 10:13 06/22/22 10:13 Physical exam: General: Well-developed, well-nourished HEENT: Normocephalic, sclerae nonicteric Abdomen: Nontender, nondistended Extremities: No edema Neuro: Alert and oriented Assessment and Plan (1) Colon polyps Narrative/Plan: Will proceed with colonoscopy at this time. Current Visit: Yes Status: Acute Code(s): K63.5 - POLYP OF COLON SNOMED Code(s): 68572478
--- NOTE | 2022-06-22 11:10 | P.PCN ---
Date of Procedure: 06/22/22 Procedure(s) Performed: PREOPERATIVE DIAGNOSIS: History of polyps POSTOPERATIVE DIAGNOSIS: Normal exam PROCEDURE: Colonoscopy ANESTHESIA: MAC SURGEON: Milo Padron M.D. SPECIMENS: None ENDOSCOPIC PROCEDURE: The patient was placed on the endoscopy table in the left decubitus position. The Olympus colonoscope was inserted into the anus and passed under direct visualization to the base of the cecum. The appendiceal orifice was visualized. From that point the scope was slowly withdrawn inspecting all surfaces carefully. There were no neoplastic inflammatory or polypoid lesions throughout the cecum, ascending, transverse, descending, sigmoid and rectum. There was no visible diverticulosis noted. Digital rectal examination was normal. The patient was taken to the recovery room in stable condition per anesthesia guidelines. RECOMMENDATIONS: Resume diet. Follow colonoscopy 5-10 years.
[2022-06-22 11:28] VITALS: BP 125/69; PULSE 65; RESP 16
== END 2022-06-22 11:50 | disposition home or self-care (01) ==
LOC: ORWHC2ENDO 09:49
PROVIDERS: ATTEND Surgery
DX: Z12.11 Encounter for screening for malignant neoplasm of colon (principal); J45.909 Unspecified asthma, uncomplicated; K21.9 Gastro-esophageal reflux disease without esophagitis; E78.5 Hyperlipidemia, unspecified; J18.9 Pneumonia, unspecified organism; G47.33 Obstructive sleep apnea (adult) (pediatric); M79.7 Fibromyalgia; K76.9 Liver disease, unspecified; K58.9 Irritable bowel syndrome, unspecified; K76.0 Fatty (change of) liver, not elsewhere classified; M54.9 Dorsalgia, unspecified; K91.0 Vomiting following gastrointestinal surgery; G89.29 Other chronic pain; Z85.828 Personal history of other malignant neoplasm of skin; Z86.010 Personal history of colon polyps; Z90.89 Acquired absence of other organs; Z90.49 Acquired absence of other specified parts of digestive tract; Z90.710 Acquired absence of both cervix and uterus; Z98.890 Other specified postprocedural states; Z87.891 Personal history of nicotine dependence; T75.3XXD Motion sickness, subsequent encounter; Z83.49 Family history of other endocrine, nutritional and metabolic diseases; Z82.5 Family history of asthma and other chronic lower respiratory diseases; Z83.438 Family history of other disorder of lipoprotein metabolism and other lipidemia; Z81.8 Family history of other mental and behavioral disorders; Z83.2 Family history of diseases of the blood and blood-forming organs and certain disorders involving the immune mechanism; Z79.51 Long term (current) use of inhaled steroids; Z79.899 Other long term (current) drug therapy; Z99.89 Dependence on other enabling machines and devices; Z88.6 Allergy status to analgesic agent; Z88.8 Allergy status to other drugs, medicaments and biological substances; Z88.1 Allergy status to other antibiotic agents; Z88.5 Allergy status to narcotic agent; Z91.018 Allergy to other foods; Z91.014 Allergy to mammalian meats; Z91.040 Latex allergy status; Z91.013 Allergy to seafood
CPT/HCPCS: 45378; J2704

== ENCOUNTER → 2023-04-01 | Outpatient (CLI) | payer OTHER ==
--- NOTE | 2023-04-07 12:55 | MM ---
Reason for Exam: Screening (asymptomatic). Last screening mammogram was performed 12 month(s) ago. Patient History: Menarche at age 14. First Full-Term at age 24. Hysterectomy at age 45. Postmenopausal. Patient has history of breast feeding. Other cancer. Maternal aunt had breast cancer, age 40. Maternal aunt had breast cancer, age 60. Maternal aunt had breast cancer, age 50. Sister had breast cancer, age 46. Risk Values: Cee 5 year model risk: 2.8%. NCI Lifetime model risk: 11.7%. Prior Study Comparison: 03/04/2020 Bilateral Screening Mammogram, [facility]. 03/20/2021 Bilateral Screening Mammogram, [facility]. 03/31/2022 Bilateral MG 3D screening mammo w/cad, [facility]. Tissue Density: The breast tissue is almost entirely fat. Findings: Analyzed By CAD. There is no suspicious group of microcalcifications or new suspicious mass. Overall Assessment: Negative, BI-RAD 1 Management: Screening Mammogram of both breasts in [address] [facility] will attempt to contact patient to return for supplemental views and ultrasound if indicated. Patient should continue monthly self-breast exams. A clinical breast exam by your physician is recommended on an annual basis. This exam should not preclude additional follow-up of suspicious palpable abnormalities. Note on Cee scores and lifetime risk: 1. A Cee score greater than 3% is considered moderate risk. If this is the case, consider specialist referral to assess eligibility for a risk reducing agent. 2. If overall lifetime risk for the development of breast cancer is 20% or higher, the patient may qualify for future screening with alternating mammogram and breast MRI. Electronically signed and approved by: Rufus Dela Cruz DO
== END | disposition home or self-care (01) ==
LOC: RADMAMWWP 09:55
PROVIDERS: ATTEND Family Medicine
DX: Z12.31 Encounter for screening mammogram for malignant neoplasm of breast (principal); Z78.0 Asymptomatic menopausal state; Z80.3 Family history of malignant neoplasm of breast
CPT/HCPCS: 77063; 77067

== ENCOUNTER 2024-04-14 22:37 | Emergency (ER) | payer OTHER ==
--- NOTE | 2024-04-14 23:20 | ED ---
General Adult HPI - General Chief complaint: Extremity Injury, Upper Stated complaint: Left wrist injury,Fall Time Seen by Provider: 04/14/24 22:49 Source: patient Mode of arrival: ambulatory Limitations: no limitations - History of Present Illness Initial comments: Patient is a pleasant 63-year-old female past medical history of mast cell disease presenting for mechanical trip and fall and resultant left rib pain and left upper extremity pain. Patient was walking her dogs and they ran off causing her to trip and fall onto gravel. Patient states she landed face down and on her left side. She denied loss of consciousness and denies any midline neck pain or radiculopathy down her extremities. It does endorse some muscle soreness and tightness along the left side of her neck however no shoulder pain. Endorses distal left wrist pain and left hand pain with radiation to the left elbow. Additionally landed on left ribs and has pain with deep breathing along the left rib cage. No pain meds prior to arrival. Patient states has met multiple allergies to her mast cell disease and requires Dilaudid as well as anxiety medications to control her symptoms. - Related Data Home Medications Medication Instructions Recorded Confirmed Hyoscyamine Sulfate [Levsin-Sl] 0.125 mg SL DAILY PRN 10/12/18 06/22/22 Montelukast [Singulair] 10 mg PO HS 09/15/19 06/22/22 Verapamil HCl [Verapamil ER] 180 mg PO HS 09/15/19 06/22/22 Albuterol Inhaler [Ventolin Hfa 1 - 2 puff INHALATION Q6H PRN 06/15/22 06/22/22 Inhaler] Breo (Unknown Dose) 1 puff INHALATION QAM 06/15/22 06/22/22 EPINEPHrine (Auto Inject) [Epipen] 0.3 mg IM ONCE PRN 06/15/22 06/22/22 Famotidine [Pepcid] 20 mg PO BID 06/15/22 06/22/22 LORazepam 0.5 mg PO DIRECTED PRN 06/15/22 06/22/22 Loratadine [Claritin] 10 mg PO BID PRN 06/15/22 06/22/22 Metoprolol Succinate [Metoprolol 25 mg PO HS 06/15/22 06/22/22 Succinate ER] Omeprazole 20 mg PO HS 06/15/22 06/22/22 hydrOXYzine HCL 10 mg PO DIRECTED PRN 06/15/22 06/22/22 Allergies Allergy/AdvReac Type Severity Reaction Status Date / Time Beef Containing Products Allergy Severe Rash/Hives Verified 04/14/24 22:44 Hillman And Derivatives Allergy Severe Rash/Hives Verified 04/14/24 22:44 [Hillman] corn Allergy Severe Rash/Hives Verified 04/14/24 22:44 shellfish derived [Shellfish] Allergy Severe Swelling Verified 04/14/24 22:44 tomato Allergy Severe Rash/Hives Verified 04/14/24 22:44 wheat Allergy Severe Rash/Hives Verified 04/14/24 22:44 aspirin Allergy Anaphylaxis Verified 04/14/24 22:44 Milk Containing Products Allergy Nausea & Verified 04/14/24 22:44 (Dairy) Vomiting [Dairy] prednisone AdvReac Severe Increased Verified 04/14/24 22:44 Blood Pressure adhesive tape AdvReac Unknown Verified 04/14/24 22:44 ciprofloxacin [From Cipro] AdvReac Tendonitis Verified 04/14/24 22:44 duloxetine HCl AdvReac Hallucinations/Suicidal Verified 04/14/24 22:44 [From Cymbalta] Ideations latex AdvReac Unknown Verified 04/14/24 22:44 morphine AdvReac Migraine Verified 04/14/24 22:44 topiramate [From Topamax] AdvReac Hallucinati Verified 04/14/24 22:44 ons artificial sweetner Allergy Severe Rash/Hives Uncoded 04/14/24 22:44 processed meats Allergy Severe Rash/Hives Uncoded 04/14/24 22:44 Review of Systems ROS Statement: Those systems with pertinent positive or pertinent negative responses have been documented in the HPI. ROS Other: All systems not noted in ROS Statement are negative. Past Medical History Past Medical History: Asthma, Cancer, Fibromyalgia, GERD/Reflux, Liver Disease, Pneumonia Additional Past Medical History / Comment(s): Fibromyalgia, IBS, Chronic fatigue, non-alcoholic fatty liver disease, chronic back pain (broken back), systemic mast cell disease, squamous cell skin cancer (removed), basal cell removed from body History of Any Multi-Drug Resistant Organisms: None Reported Past Surgical History: Adenoidectomy, Cholecystectomy, Hysterectomy, Orthopedic Surgery, Tonsillectomy Additional Past Surgical History / Comment(s): tonsillectomy and adenoidectomy 1965, 2005 hysterectomy 2011 exp lap for scar tissue, 1999 right elbow tendon release, 2002 left elbow tendon release, 2011 gallbladder removed, occipital nerve steriod injections., ankle surgery 2016, skin cancer removed from chest and right breast Past Anesthesia/Blood Transfusion Reactions: Postoperative Nausea & Vomiting (PONV) Past Psychological History: No Psychological Hx Reported Smoking Status: Never smoker Past Alcohol Use History: None Reported Past Drug Use History: None Reported - Past Family History Father Family Medical History: COPD, Hyperlipidemia, Hypertension Sister(s) Additional Family Medical History / Comment(s): One sister with bipolar. One sister with bipolar and schizophrenia. Brother(s) Family Medical History: Blood Disorder, Deep Vein Thrombosis (DVT) Additional Family Medical History / Comment(s): Blood clotting disorder, bipolar. Mother Family Medical History: AFIB, Hyperlipidemia, Hypertension, Renal Disease Additional Family Medical History / Comment(s): Wagners, bipolar, disassociative personality disorder, schizophrenia, passed from blood clot in the brain. General Exam - General Exam Comments Initial Comments: PE: CONSTITUTIONAL: No apparent distress, well appearing SKIN: Warm, dry, no jaundice, hives or petechiae. Small hematoma to left lateral rib cage EYES: Pupils are equally round, extraocular movements intact without nystagmus, clear conjunctiva, non-icteric sclera HENT: Normocephalic, atraumatic, moist mucus membranes, oropharynx clear without exudates NECK: , Full range of motion, normal appearance, no midline spinal tenderness PULMONARY: Clear to auscultation without wheezes, rhonchi, or rales, normal excursion, no accessory muscle use and no stridor CARDIOVASCULAR: Regular rate, rhythm, normal S1 and S2. No appreciated murmurs, rubs or gallops. Strong radial pulses with intact distal perfusion. No lower extremity edema GASTROINTESTINAL: Soft, non-tender, non-distended, no palpable masses, no r ebound or guarding. No hepatosplenomegaly MUSCULOSKELETAL: Left upper extremity tender to palpation along left antecubital fossa with pain that radiates down to the left wrist, no bony tenderness at the left elbow, able to flex and extend left elbow and left shoulder with no difficulty, tenderness to palpation at the distal radius and ulna as well as palmar aspect of the left hand mild swelling around left wrist no deformity, extremity is neurovascularly intact, no overlying lacerations, otherwise other extremities have no gross deformity, no edema, redness, or swelling. Left rib tenderness to palpation NEUROLOGIC:_a/o x 3, GCS 15, normal mentation and speech. Moves all extremities x 4 without motor or sensory deficit, with exception of above PSYCHIATRIC:_normal mood and affect, thought process is clear and linear Limitations: no limitations Course Vital Signs 04/14/24 04/15/24 22:42 01:18 Temperature 98.5 F 98.8 F Pulse Rate 111 H 87 Respiratory 18 17 Rate Blood Pressure 163/87 128/82 O2 Sat by Pulse 99 95 Oximetry Procedures - Orthopedic Splinting/Casting Injury #1 Side: left Upper Extremity Injury Location: wrist Upper Extremity Immobilizer: sugar tong splint Additional Comments: Post splint check showed extremity neurvascularly intact, <2s capillary refill, sensation to light touch intact throughout Medical Decision Making - Medical Decision Making Was pt. sent in by a medical professional or institution (, PA, INVESTOR RELATIONS MANAGER, urgent care, hospital, or senior care...) When possible be specific @ -No Did you speak to anyone other than the patient for history (EMS, parent, family, police, friend...)? What history was obtained from this source @ -No Did you review nursing and triage notes (agree or disagree)? Why? @ -I reviewed and agree with nursing and triage notes Were old charts reviewed (outside hosp., previous admission, EMS record, old EKG, old radiological studies, urgent care reports/EKG's, senior care records)? Report findings @ -Reviewed old charts- no visits/charts in the last year to review Differential Diagnosis (chest pain, altered mental status, abdominal pain women, abdominal pain men, vaginal bleeding, weakness, fever, dyspnea, syncope, headache, dizziness, GI bleed, back pain, seizure, CVA, palpatations, mental health, musculoskeletal)? @ -Differential diagnosis remains broad however top considerations include contusion, fracture, sprain, this is not all inclusive list EKG interpreted by me (3pts min.). @ -As above X-rays interpreted by me (1pt min.). @ -Distal radius fracture, minimally displaced, no pneumothorax, no rib fractures on CXR CT interpreted by me (1pt min.). @ -None done U/S interpreted by me (1pt. min.). @ -None done What testing was considered but not performed or refused? (CT, X-rays, U/S, labs)? Why? @ -None What meds were considered but not given or refused? Why? @ -None Did you discuss the management of the patient with other professionals (professionals i.e. , PA, INVESTOR RELATIONS MANAGER, lab, RT, psych nurse, social media manager, nut orchardist, teacher, quarantine officer, case management assistant)? Give summary @ -No Was smoking cessation discussed for >3mins.? @ -No Was critical care preformed (if so, how long)? @ -No Were there social determinants of health that impacted care today? How? (Homelessness, low income, unemployed, alcoholism, drug addiction, transportation, low edu. Level, literacy, decrease access to med. care, halfway, rehab)? @ -No Was there de-escalation of care discussed even if they declined (Discuss DNR or withdrawal of care, Hospice)? @ -No What co-morbidities impacted this encounter? (DM, HTN, Smoking, COPD, CAD, Cancer, CVA, ARF, Chemo, Hep., AIDS, mental health diagnosis, sleep apnea, morbid obesity)? @ -None Was patient admitted / discharged? Hospital course, mention meds given and route, prescriptions, significant lab abnormalities, going to OR and other pertinent info. @ -Hospital course Discharged- Patient is a pleasant 63 y/o female presenting for mechanical trip and fall with resultant left rib and left wrist pain. No LOC. On assessment patient is overall well appearing but painful. Head is atraumatic, no midline spinal TTP, dd not some muscular discomfort along left side of neck but able to range neck through full ROM without midline neck pain or radiculoathy, no step offs or bony tendern ess on exam. Remainder of exam significant for TTP left ribs, breath sounds clear and present bilaterally, slight left wrist deformity, with LUE neurovasculary intact without lacerations. Plan for plain films of ribs, left wrist and hand in addition to pain control, patient agreeable with POC. XR left wrist/hand significant for "Acute minimally displaced intra articular fracture through the distal radial meta-epiphysiis. Ulna intact. No additional fracture in left hand." XR ribs without acute process. On reassessment pain is improved. Updated pt to findings. Discussed plan for splint placement. Due to minimal displacement of fracture, reduction of fracture not indicated. Additional dilaudid ordered for splint placement tolerance. Sugar tong splint placed. Patient tolerated procedure well. Discussed with patient importance of following up closely with her orthopedic surgeon within this week for further care of fracture. Patient to use home mobic for pain control. Patient is comfortable and agreeable with plan and discharge at this point. Undiagnosed new problem with uncertain prognosis? @ -No Drug Therapy requiring intensive monitoring for toxicity (Heparin, Nitro, Insulin, Cardizem)? @ -No Were any procedures done? @ -Splint placement Diagnosis/symptom? @ -Closed distal radius fracture Acute, or Chronic, or Acute on Chronic? @ Acute Uncomplicated (without systemic symptoms) or Complicated (systemic symptoms)? @ -uncomplicated Side effects of treatment? @ -No Exacerbation, Progression, or Severe Exacerbation? @ -No Poses a threat to life or bodily function? How? (Chest pain, [place], [place], pneumonia, PE, COPD, DKA, ARF, appy, cholecystitis, CVA, Diverticulitis, Homicidal, Suicidal, threat to staff... and all critical care pts) @ Yes, if fracture left undressed could result in worsening/improper healing Disposition Clinical Impression: Distal radius fracture, left Disposition: HOME SELF-CARE Condition: Good Instructions (If sedation given, give patient instructions): Wrist Injury (ED), Arm Fracture in Adults (ED) Additional Instructions: Every disease is a spectrum and a small chance still exists that a serious condition could develop, for this reason, please monitor yourself closely for new, changing or worsening symptoms, pain that you cannot control home medications, uncontrolled swelling, new numbness, pale or blue color to your affected extremity,difficulty in breathing, inability to tolerate/keep down fluids or your medications, inability to follow up with outpatient providers as instructed and should you experience these symptoms or should you have any further concerns for your wellbeing please return to the ED or call 911 immediately. Please follow up with your regular orthopedist on Tuesday for appointment as soon as possible. You can use your home mobic for pain control. Please take as prescribed. Please ice and elevate your affected extremity for 20 minutes every 3-4 hours as needed for pain control. Please keep your splint clean and dry. Please do not remove your splint until seen by orthopedic doctor. You can also use lidocaine patches for topical pain. You can purchase 4% patches over the counter at most drug stores. These can be helpful for pain from your muscles or bones. PLEASE call your primary care physician as soon as possible to arrange / discuss plan for followup appointment. Appointment in the next 1-3 days is strongly encouraged if possible. PLEASE let us know here before you leave if there is anything further we can do to be of any assistance. Take care and feel Better! Is patient prescribed a controlled substance at d/c from ED?: No Referrals: Calvin Felix, DO [Primary Care Provider] - 1-2 days
[2024-04-14] MEDS: hydrOXYzine pamoate 25 MG CAP PO STA (23:27)
[2024-04-14] MEDS: LORazepam 1 MG TAB PO STA (23:28)
[2024-04-14] MEDS: HYDROmorphone 1 MG/ML 1 ML SYRINGE IM STA (23:28)
--- NOTE | 2024-04-14 23:57 | XR ---
EXAMINATION TYPE: XR forearm LT, XR hand complete LT DATE OF EXAM: 04/14/2024 CLINICAL HISTORY: Fall with distal pain TECHNIQUE: Two views of the left forearm are obtained. COMPARISON: None. FINDINGS: There is an acute comminuted minimally displaced intra-articular fracture through distal r adial meta-epiphysis. The ulna is intact. No additional acute displaced fracture of the left hand. Mo [id number] narrowing throughout the fingers is seen. IMPRESSION: There is an acute comminuted nondisplaced intra-articular fracture of distal radial meta -epiphysis. [facility], , 04/14/2024 11:54 PM
--- NOTE | 2024-04-14 23:59 | XR ---
EXAMINATION TYPE: XR ribs bilat w pa chest xray DATE OF EXAM: 04/14/2024 CLINICAL HISTORY: Fall with hematoma and right-sided ribs TECHNIQUE: Single frontal view of the chest is obtained. A frontal and oblique images of the bilatera l ribs. COMPARISON: Prior chest x-ray September 14, 2019 FINDINGS: There is diminished inspiration with bibasilar linear atelectasis. The cardiac silhouette size is stable and upper limits of normal. The osseous structures are intact. Dedicated images of the bilateral ribs show no acute displaced fractures. Cholecystectomy clips are n oted. IMPRESSION: 1. No acute displaced rib fractures bilaterally. 2. No suspicious acute pulmonary process. [facility], , 04/14/2024 11:56 PM
[2024-04-15] MEDS: HYDROmorphone 1 MG/ML 1 ML SYRINGE IM STA (00:43)
[2024-04-15 01:24] VITALS: BP 128/82; PULSE 87; RESP 17; TEMP 98.8
== END 2024-04-15 01:24 | disposition home or self-care (01) ==
LOC: EC 22:37
CPT/HCPCS: 29125; 71111; 96372; 99283

== ENCOUNTER → 2024-10-29 | Outpatient (CLI) | payer MEDICARE, OTHER ==
--- NOTE | 2024-10-29 16:47 | MM ---
Reason for Exam: Screening (asymptomatic). Last mammogram was performed 1 year(s) and 7 month(s) ago. Patient History: Menarche at age 14. First Full-Term at age 24. Hysterectomy at age 45. Postmenopausal. Patient has history of breast feeding. Other cancer. Maternal aunt had breast cancer, age 40. Maternal aunt had breast cancer, age 60. Maternal aunt had breast cancer, age 50. Sister had breast cancer, age 46. Risk Values: Cee 5 year model risk: 2.9%. NCI Lifetime model risk: 11.3%. Prior Study Comparison: 03/20/2021 Bilateral Screening Mammogram, [facility]. 03/31/2022 Bilateral MG 3D screening mammo w/cad, [facility]. 04/01/2023 Bilateral MG 3D screening mammo w/cad, [facility]. Tissue Density: There are scattered areas of fibroglandular density. Findings: Analyzed By CAD. Chronic nodularity on the right. There is no suspicious group of microcalcifications or new suspicious mass in either breast. Overall Assessment: Benign, BI-RAD 2 Management: Screening Mammogram of both breasts in 1 year. Patient should continue monthly self-breast exams. A clinical breast exam by your physician is recommended on an annual basis. This exam should not preclude additional follow-up of suspicious palpable abnormalities. Note on Cee scores and lifetime risk: 1. A Cee score greater than 3% is considered moderate risk. If this is the case, consider specialist referral to assess eligibility for a risk reducing agent. 2. If overall lifetime risk for the development of breast cancer is 20% or higher, the patient may qualify for future screening with alternating mammogram and breast MRI. [facility], , 10/29/2024 4:44 PM. Electronically signed and approved by: Ronald Shah M.D. Radiologist
== END | disposition home or self-care (01) ==
LOC: RADMAMWWP 13:53
PROVIDERS: ATTEND Family Medicine
DX: Z12.31 Encounter for screening mammogram for malignant neoplasm of breast (principal); R92.323 Mammographic fibroglandular density, bilateral breasts; Z78.0 Asymptomatic menopausal state; Z80.3 Family history of malignant neoplasm of breast
CPT/HCPCS: 77063; 77067